=== PATIENT | female | born 1970 | race Caucasian/White ===

== ENCOUNTER 2016-05-20 08:30 | Emergency (ER) | payer SELFPAY ==
--- NOTE | 2016-05-20 09:12 | ER Document Report ---
HPI - HPI Patient complains to provider of: sinus pain and drainage Onset: Last week Onset/Duration: Gradual Quality of pain: Achy, Stabbing Pain Level: 3 Context: 45 yo female c/o bilateral max. sinus pain, pressure, stuffiness, for a week. No fever. Has post nasal drip. NO chest pain or sob. Does have cough Associated Symptoms: None Exacerbated by: Denies Relieved by: Denies Similar symptoms previously: Yes Recently seen / treated by doctor: No - ROS ROS below otherwise negative: Yes Systems Reviewed and Negative: Yes All other systems reviewed and negative - REPRODUCTIVE Reproductive: DENIES: : - DERM Skin Color: Normal Past Medical History - General Information source: Patient - Social History Smoking Status: Current Every Day Smoker Chew tobacco use (# tins/day): No Frequency of alcohol use: None Drug Abuse: None Lives with: Family Family History: Reviewed & Not Pertinent Patient has suicidal ideation: No Patient has homicidal ideation: No Pulmonary Medical History: Reports: Hx Bronchitis Renal/ Medical History: Denies: Hx Peritoneal Dialysis GI Medical History: Reports: Hx Gastroesophageal Reflux Disease, Hx Hiatal Hernia Past Surgical History: Reports: Hx Cholecystectomy, Hx Gynecologic Surgery - ectopic, D&C x2, Hx Hysterectomy, Hx Orthopedic Surgery - Left hand, left ankle x4, Hx Tubal Ligation - Immunizations Immunizations up to date: Yes Hx Diphtheria, Pertussis, Tetanus Vaccination: Yes Vertical Provider Document - CONSTITUTIONAL Agree With Documented VS: Yes Exam Limitations: No Limitations General Appearance: No Apparent Distress - INFECTION CONTROL TRAVEL OUTSIDE OF THE [place] IN LAST 30 DAYS: No - HEENT HEENT: Normocephalic, Pharyngeal Exudate, Pharyngeal Erythema. negative: Tympanic Membrane Red, Tympanic Membrane Bulging Notes: no facial swelling, boggy nares - NECK Neck: Supple. negative: Lymphadenopathy-Left, Lymphadenopathy-Right - RESPIRATORY Respiratory: Breath Sounds Normal, No Respiratory Distress O2 Sat by Pulse Oximetry: 95 - CARDIOVASCULAR Cardiovascular: Regular Rate, Regular Rhythm - GI/ABDOMEN Gastrointestinal: Abdomen Soft, Abdomen Non-Tender - MUSCULOSKELETAL/EXTREMETIES Musculoskeletal/Extremeties: MAEW, FROM - NEURO Level of Consciousness: Awake, Alert - DERM Integumentary: Warm, Dry Course - Vital Signs Vital signs: Temp Pulse Resp BP Pulse Ox 97.9 F 95 16 113/70 95 05/20/16 08:40 05/20/16 08:40 05/20/16 08:40 05/20/16 08:40 05/20/16 08:40 Discharge - Discharge Clinical Impression: sinusitis Condition: Good Disposition: HOME, SELF-CARE Instructions: Sinusitis ([facility]), Augmentin ([facility]) Additional Instructions: warm compress to sinus saline nasal spray four times per day to er if worse Stop smoking Please complete the patient satisfaction survey if you get one, and return it.. If you do not receive a survey, then you can go to the [facility] website, [email or web address] and place your comments about your very good care. Thank you very much. It was a pleasure being your medical provider today. Prescriptions: Amoxicillin/Potassium Clav [Augmentin 875-125 Tablet] 1 each PO BID #20 tablet Forms: Return to Work
[2016-05-20 09:29] VITALS: BP 125/94
== END 2016-05-20 09:29 | disposition home or self-care (01) ==
LOC: ER 08:30
DX: J32.9 Chronic sinusitis, unspecified (principal); J34.89 Other specified disorders of nose and nasal sinuses; R05 Cough; F17.200 Nicotine dependence, unspecified, uncomplicated; R09.82 Postnasal drip
CPT/HCPCS: 99283

== ENCOUNTER 2016-06-03 11:58 | Emergency (ER) | payer SELFPAY ==
--- NOTE | 2016-06-03 13:00 | ER Document Report ---
ED Medical Screen (RME) - General Stated Complaint: BACK PAIN Time seen by provider: 12:59 Mode of Arrival: Ambulatory Information source: Patient Notes: 45-year-old female complaining of bilateral pelvic pain and low back pain since she took Augmentin for a sinus infection several weeks ago. She has some itching in her vagina without discharge. She thinks she has a urinary tract infection. No fever. I have greeted and performed a rapid initial assessment of this patient. A comprehensive ED assessment, evaluation of the patient, analysis of test results , and completion of the medical decision making process will be contacted by additional ED providers. TRAVEL OUTSIDE OF THE [place] IN LAST 30 DAYS: No - Related Data Allergies/Adverse Reactions: ciprofloxacin HCl [From Cipro] Allergy (Mild, Verified 05/20/16 08:38) Sulfa (Sulfonamide Antibiotics) Allergy (Mild, Verified 05/20/16 08:38) escitalopram oxalate [From Lexapro] Allergy (Verified 05/20/16 08:38) nitrofurantoin [From Macrobid] Allergy (Verified 05/20/16 08:38) Facial swelling nitrofurantoin macrocrystalline [From Macrobid] Allergy (Verified 05/20/16 08:38 ) Facial swelling contrast dye Allergy (Mild, Uncoded 05/20/16 08:38) Past Medical History - Past Medical History Cardiac Medical History: Denies: Hx Coronary Artery Disease, Hx Heart Attack, Hx Hypertension Pulmonary Medical History: Reports: Hx Bronchitis Denies: Hx Asthma, Hx COPD, Hx Pneumonia Neurological Medical History: Denies: Hx Cerebrovascular Accident, Hx Seizures Renal/ Medical History: Denies: Hx Peritoneal Dialysis GI Medical History: Reports: Hx Gastroesophageal Reflux Disease, Hx Hiatal Hernia Musculoskeltal Medical History: Denies Hx Arthritis Past Surgical History: Reports: Hx Cholecystectomy, Hx Gynecologic Surgery - ectopic, D&C x2, Hx Hysterectomy, Hx Orthopedic Surgery - Left hand, left ankle x4, Hx Tubal Ligation - Immunizations Immunizations up to date: Yes Hx Diphtheria, Pertussis, Tetanus Vaccination: Yes Physical Exam - Vital signs Vitals: Temp Pulse Resp BP Pulse Ox 98.2 F 81 16 116/75 96 06/03/16 12:08 06/03/16 12:08 06/03/16 12:08 06/03/16 12:08 06/03/16 12:08 Course - Vital Signs Vital signs: Temp Pulse Resp BP Pulse Ox 98.2 F 81 16 116/75 96 06/03/16 12:08 06/03/16 12:08 06/03/16 12:08 06/03/16 12:08 06/03/16 12:08
[2016-06-03 13:42] LABS: ABSOLUTE EOSINOPHILS # (AUTO) 0.2 10^3/uL (0.0-0.6); ABSOLUTE LYMPHOCYTES (AUTO) 1.9 10^3/uL (0.5-4.7); ABSOLUTE MONOCYTES (AUTO) 0.5 10^3/uL (0.1-1.4); BASOPHILS % (AUTO) 0.7 % (0-2); HEMATOCRIT 44.7 % (36.0-47.0); HEMOGLOBIN 15.2 g/dL (12.0-15.5); HGB HCT DIFFERENCE 0.9; LYMPHOCYTES % (AUTO) 29.1 % (13-45); MEAN CORPUSCULAR HEMOGLOBIN 31.8 pg (27.0-33.4); MEAN CORPUSCULAR HGB CONC 33.9 g/dL (32.0-36.0); MEAN CORPUSCULAR VOLUME 94 fl (80-97); MONOCYTES % (AUTO) 8.1 % (3-13); RED BLOOD COUNT 4.77 10^6/uL (3.72-5.28); RED CELL DISTRIBUTION WIDTH 13.7 % (11.5-14.0); SEGMENTED NEUTROPHILS % (AUTO) 59.1 % (42-78); WHITE BLOOD COUNT 6.7 10^3/uL (4.0-10.5)
[2016-06-03 13:43] LABS: APPEARANCE,URINE SLIGHTLY-CLOUDY; BILIRUBIN,URINE NEGATIVE (NEGATIVE); GLUCOSE, URINE NEGATIVE (NEGATIVE); KETONES,URINE NEGATIVE (NEGATIVE); LEUKOCYTE ESTERASE,URINE NEGATIVE (NEGATIVE); NITRITE,URINE NEGATIVE (NEGATIVE); PROTEIN,URINE NEGATIVE (NEGATIVE); URINE SPECIFIC GRAVITY 1.003; UROBILINOGEN,URINE NEGATIVE mg/dL (<2.0)
[2016-06-03 13:50] LABS: ALANINE AMINOTRANSFERASE 40 U/L (9-52); ALBUMIN 4.2 g/dL (3.5-5.0); ALKALINE PHOSPHATASE 84 U/L (38-126); ANION GAP 7 (5-19); ASPARTATE AMINO TRANSFERASE 26 U/L (14-36); BILIRUBIN,TOTAL 0.3 mg/dL (0.2-1.3); BLOOD UREA NITROGEN 9 mg/dL (7-20); CALCIUM 9.4 mg/dL (8.4-10.2); CARBON DIOXIDE 28 mmol/L (22-30); CHLORIDE 107 mmol/L (98-107); GLUCOSE 73 mg/dL (75-110); POTASSIUM 4.5 mmol/L (3.6-5.0); SODIUM 141.5 mmol/L (137-145); TOTAL PROTEIN 6.6 g/dL (6.3-8.2)
--- NOTE | 2016-06-03 14:24 | ER Document Report ---
ED General - General Chief Complaint: Flank Pain Stated Complaint: BACK PAIN Mode of Arrival: Ambulatory Information source: Patient Notes: 45-year-old female presents with complaints of bilateral flank pain associated with burning on urination. Patient notes she was recently placed on Augmentin for TRAVEL OUTSIDE OF THE [place] IN LAST 30 DAYS: No - HPI Onset: Other - 3-4 days Onset/Duration: Persistent Quality of pain: Achy Severity: Mild Pain Level: 1 Associated symptoms: None Exacerbated by: Movement Relieved by: Denies Similar symptoms previously: Yes Recently seen / treated by doctor: Yes - Related Data Allergies/Adverse Reactions: ciprofloxacin HCl [From Cipro] Allergy (Mild, Verified 06/03/16 12:59) Sulfa (Sulfonamide Antibiotics) Allergy (Mild, Verified 06/03/16 12:59) escitalopram oxalate [From Lexapro] Allergy (Verified 06/03/16 12:59) nitrofurantoin [From Macrobid] Allergy (Verified 06/03/16 12:59) Facial swelling nitrofurantoin macrocrystalline [From Macrobid] Allergy (Verified 06/03/16 12:59 ) Facial swelling contrast dye Allergy (Mild, Uncoded 06/03/16 12:59) Past Medical History - General Information source: Patient - Social History Smoking Status: Current Every Day Smoker Cigarette use (# per day): No Chew tobacco use (# tins/day): No Smoking Education Provided: No Frequency of alcohol use: None Drug Abuse: None Family History: Reviewed & Not Pertinent Patient has suicidal ideation: No Patient has homicidal ideation: No - Past Medical History Cardiac Medical History: Denies: Hx Coronary Artery Disease, Hx Heart Attack, Hx Hypertension Pulmonary Medical History: Reports: Hx Bronchitis Denies: Hx Asthma, Hx COPD, Hx Pneumonia Neurological Medical History: Denies: Hx Cerebrovascular Accident, Hx Seizures Renal/ Medical History: Denies: Hx Peritoneal Dialysis GI Medical History: Reports: Hx Gastroesophageal Reflux Disease, Hx Hiatal Hernia Musculoskeltal Medical History: Denies Hx Arthritis Past Surgical History: Reports: Hx Cholecystectomy, Hx Gynecologic Surgery - ectopic, D&C x2, Hx Hysterectomy, Hx Orthopedic Surgery - Left hand, left ankle x4, Hx Tubal Ligation - Immunizations Immunizations up to date: Yes Hx Diphtheria, Pertussis, Tetanus Vaccination: Yes Review of Systems - Review of Systems Notes: REVIEW OF SYSTEMS: CONSTITUTIONAL : Denies fever, chills, or sweats. Denies recent illness. EENT: Denies eye, ear, throat, or mouth pain or symptoms. Denies nasal or sinus congestion or discharge. Denies throat, tongue, or mouth swelling or difficulty swallowing. CARDIOVASCULAR: Denies chest pain. Denies palpitations or racing or irregular heart beat. Denies ankle edema. RESPIRATORY: Denies cough, cold, or chest congestion. Denies shortness of breath, difficulty breathing, or wheezing. GASTROINTESTINAL: Denies abdominal pain or distention. Denies nausea, vomiting , or diarrhea. Denies blood in vomitus, stools, or per rectum. Denies black, tarry stools. Denies constipation. GENITOURINARY: Admits to burning on urination FEMALE GENITOURINARY: Denies vaginal bleeding, heavy or abnormal periods, irregular periods. Denies vaginal discharge or odor. MUSCULOSKELETAL: Admits to flank pain SKIN: Denies rash, lesions or sores. HEMATOLOGIC : Denies easy bruising or bleeding. LYMPHATIC: Denies swollen, enlarged glands. NEUROLOGICAL: Denies confusion or altered mental status. Denies passing out or loss of consciousness. Denies dizziness or lightheadedness. Denies headache. Denies weakness or paralysis or loss of use of either side. Denies problems with gait or speech. Denies sensory loss, numbness, or tingling. Denies seizures. PSYCHIATRIC: Denies anxiety or stress. Denies depression, suicidal ideation, or homicidal ideation. ALL OTHER SYSTEMS REVIEWED AND NEGATIVE. Dictation was performed using [employer] voice recognition software PHYSICAL EXAMINATION: GENERAL: Well-appearing, well-nourished and in no acute distress. HEAD: Atraumatic, normocephalic. EYES: Pupils equal round and reactive to light, extraocular movements intact, conjunctiva are normal. ENT: Nares patent, oropharynx clear without exudates. Moist mucous membranes. NECK: Normal range of motion, supple without lymphadenopathy LUNGS: Breath sounds clear to auscultation bilaterally and equal. No wheezes rales or rhonchi. HEART: Regular rate and rhythm without murmurs ABDOMEN: Soft, nontender, nondistended abdomen. No guarding, no rebound. No masses appreciated. Right CVA tenderness Female : deferred Musculoskeletal: Normal range of motion, no pitting or edema. No cyanosis. NEUROLOGICAL: Cranial nerves grossly intact. Normal speech, normal gait. Normal sensory, motor exams PSYCH: Normal mood, normal affect. SKIN: Warm, Dry, normal turgor, no rashes or lesions noted. Physical Exam - Vital signs Vitals: Temp Pulse Resp BP Pulse Ox 98.2 F 81 16 116/75 96 06/03/16 12:08 06/03/16 12:08 06/03/16 12:08 06/03/16 12:08 06/03/16 12:08 Course - Re-evaluation Re-evalutation: 06/03/16 15:21 Urinalysis notes no sign of infection, CT noted no acute abnormality. Patient will betreated for candidiasis since she was recently on augmentin After performing a Medical Screening Examination, I estimate there is LOW risk for ACUTE CORONARY SYNDROME, RESPIRATORY FAILURE, SEPSIS OR MENINGITIS, thus I consider the discharge disposition reasonable. The patient and I have discussed the diagnosis and risks, and we agree with discharging home with close follow- up. We also discussed returning to the Emergency Department immediately if new or worsening symptoms occur. We have discussed the symptoms which are most concerning (e.g., changing or worsening pain, trouble swallowing or breathing, neck stiffness, fever) that necessitate immediate return. - Vital Signs Vital signs: Temp Pulse Resp BP Pulse Ox 98.2 F 81 16 116/75 96 06/03/16 12:08 06/03/16 12:08 06/03/16 12:08 06/03/16 12:08 06/03/16 12:08 - Laboratory Result Diagrams: 06/03/16 13:16 06/03/16 13:16 Laboratory results interpreted by me: 06/03/16 06/03/16 13:16 13:16 Glucose 73 L Urine Blood SMALL H - Diagnostic Test Radiology reviewed: Image reviewed, Reports reviewed Discharge - Discharge Clinical Impression: Flank pain, Candidiasis of vagina Condition: Stable Disposition: HOME, SELF-CARE Instructions: Flank Pain ([facility]) Additional Instructions: Follow up with your physician tomorrow for further care or return to the ED IMMEDIATELY if symptoms worsen or new concerns occur
[2016-06-03 15:07] LABS: CHLAM PCR NOT DETECTED (NOT DETECT)
[2016-06-03] MEDS ORDERED: FLUCONAZOLE 100 MG TABLET PO ONE (15:15)
[2016-06-03 15:39] VITALS: BP 120/81
== END 2016-06-03 15:20 | disposition home or self-care (01) ==
LOC: ER 11:58
DX: B37.3 Candidiasis of vulva and vagina (principal); R30.0 Dysuria; R10.9 Unspecified abdominal pain; F17.200 Nicotine dependence, unspecified, uncomplicated; Z88.1 Allergy status to other antibiotic agents; Z88.2 Allergy status to sulfonamides; Z88.8 Allergy status to other drugs, medicaments and biological substances; Z91.041 Radiographic dye allergy status; Z90.49 Acquired absence of other specified parts of digestive tract; Z90.710 Acquired absence of both cervix and uterus
CPT/HCPCS: 36415; 76380; 80053; 81001; 81025; 85025; 87086; 87491; 87591; 99284

== ENCOUNTER 2016-06-25 14:36 | Emergency (ER) | payer OTHER ==
--- NOTE | 2016-06-25 15:39 | ER Document Report ---
ED Medical Screen (RME) - General Chief Complaint: Headache Stated Complaint: HEAD PAIN Time seen by provider: 15:38 Mode of Arrival: Ambulatory Information source: Patient Notes: 46-year-old female complaining of sinus congestion and dizziness when she stands up she thinks she has a sinus infection back. Vital signs are stable in triage. She was treated with antibiotics several weeks ago for sinus infection and got better. I have greeted and performed a rapid initial assessment of this patient. A comprehensive ED assessment, evaluation of the patient, analysis of test results , and completion of the medical decision making process will be conducted by additional ED providers. TRAVEL OUTSIDE OF THE [place] IN LAST 30 DAYS: No - Related Data Allergies/Adverse Reactions: ciprofloxacin HCl [From Cipro] Allergy (Mild, Verified 06/03/16 12:59) Sulfa (Sulfonamide Antibiotics) Allergy (Mild, Verified 06/03/16 12:59) escitalopram oxalate [From Lexapro] Allergy (Verified 06/03/16 12:59) nitrofurantoin [From Macrobid] Allergy (Verified 06/03/16 12:59) Facial swelling nitrofurantoin macrocrystalline [From Macrobid] Allergy (Verified 06/03/16 12:59 ) Facial swelling contrast dye Allergy (Mild, Uncoded 06/03/16 12:59) Past Medical History - Past Medical History Cardiac Medical History: Denies: Hx Coronary Artery Disease, Hx Heart Attack, Hx Hypertension Pulmonary Medical History: Reports: Hx Bronchitis Denies: Hx Asthma, Hx COPD, Hx Pneumonia Neurological Medical History: Denies: Hx Cerebrovascular Accident, Hx Seizures Renal/ Medical History: Denies: Hx Peritoneal Dialysis GI Medical History: Reports: Hx Gastroesophageal Reflux Disease, Hx Hiatal Hernia Musculoskeltal Medical History: Denies Hx Arthritis Past Surgical History: Reports: Hx Cholecystectomy, Hx Gynecologic Surgery - ectopic, D&C x2, Hx Hysterectomy, Hx Orthopedic Surgery - Left hand, left ankle x4, Hx Tubal Ligation - Immunizations Immunizations up to date: Yes Hx Diphtheria, Pertussis, Tetanus Vaccination: Yes Physical Exam - Vital signs Vitals: Temp Pulse Resp BP Pulse Ox 97.7 F 81 16 128/85 H 96 06/25/16 14:39 06/25/16 14:39 06/25/16 14:39 06/25/16 14:39 06/25/16 14:39 Course - Vital Signs Vital signs: Temp Pulse Resp BP Pulse Ox 97.7 F 81 16 128/85 H 96 06/25/16 14:39 06/25/16 14:39 06/25/16 14:39 06/25/16 14:39 06/25/16 14:39
--- NOTE | 2016-06-25 16:55 | ER Document Report ---
ED General - General Chief Complaint: Headache Stated Complaint: HEAD PAIN Time seen by provider: 16:50 Mode of Arrival: Ambulatory Information source: Patient Notes: 46-year-old female complains about 3 day history of anterior facial pain and pressure subjective fever and nonproductive cough several what she's had in the past with sinus infections. Patient reports completing course of Augmentin 3 weeks ago with improvement and then became worse again. She also reports she's been on Claritin for the past 3 days and reports dry chapped lips with that. She denies earache, sore throat, chest pain, abdominal pain, back pain, nausea, or vomiting. He reports he has been drinking fluids without problems was concerned she might be dehydrated anyway. Physical Exam: General: Alert, appears well. HEENT: Normocephalic. Atraumatic. PERRLA. Extraocular movements intact. Tympanic membranes and canals clear Oropharynx clear. Tender to palpation over frontal and maxillary sinuses bilaterally Neck: Supple. Non-tender. Respiratory: No respiratory distress. Clear and equal breath sounds bilaterally. Cardiovascular: Regular rate and rhythm. Abdominal: Normal Inspection. Soft, non-tender. No distension. Normal Bowel Sounds. Back: Non-tender. No deformity or step off. Extremities: Moves all four extremities. Upper extremities: Normal inspection. Non-tender. Normal color. Normal ROM. Normal temperature. Lower extremities: Normal inspection. Non-tender. No edema. Normal color. Normal ROM. Normal temperature. Neurological: Speech clear mentation normal moves all extremities well Psychological: Normal affect. Normal Mood. Skin: Warm. Dry. Normal color. TRAVEL OUTSIDE OF THE [place] IN LAST 30 DAYS: No - Related Data Allergies/Adverse Reactions: ciprofloxacin HCl [From Cipro] Allergy (Mild, Verified 06/03/16 12:59) Sulfa (Sulfonamide Antibiotics) Allergy (Mild, Verified 06/03/16 12:59) escitalopram oxalate [From Lexapro] Allergy (Verified 06/03/16 12:59) nitrofurantoin [From Macrobid] Allergy (Verified 06/03/16 12:59) Facial swelling nitrofurantoin macrocrystalline [From Macrobid] Allergy (Verified 06/03/16 12:59 ) Facial swelling contrast dye Allergy (Mild, Uncoded 06/03/16 12:59) Past Medical History - General Information source: Patient - Social History Smoking Status: Current Every Day Smoker Family History: CAD - Father of MD, Malignancy - Brother with colon cancer Patient has suicidal ideation: No Patient has homicidal ideation: No - Past Medical History Cardiac Medical History: Denies: Hx Coronary Artery Disease, Hx Heart Attack, Hx Hypertension Pulmonary Medical History: Reports: Hx Bronchitis Denies: Hx Asthma, Hx COPD, Hx Pneumonia Neurological Medical History: Denies: Hx Cerebrovascular Accident, Hx Seizures Renal/ Medical History: Denies: Hx Peritoneal Dialysis GI Medical History: Reports: Hx Gastroesophageal Reflux Disease, Hx Hiatal Hernia Musculoskeltal Medical History: Denies Hx Arthritis Past Surgical History: Reports: Hx Cholecystectomy, Hx Gynecologic Surgery - ectopic, D&C x2, Hx Hysterectomy, Hx Orthopedic Surgery - Left hand, left ankle x4, Hx Tubal Ligation - Immunizations Immunizations up to date: Yes Hx Diphtheria, Pertussis, Tetanus Vaccination: Yes Review of Systems - Review of Systems Constitutional: See HPI EENT: See HPI Cardiovascular: denies: Chest pain Respiratory: See HPI Gastrointestinal: denies: Abdominal pain, Nausea, Vomiting Genitourinary: denies: Burning, Dysuria Musculoskeletal: denies: Back pain Skin: denies: Rash Hematologic/Lymphatic: denies: Swollen glands Neurological/Psychological: denies: Weakness, Numbness Physical Exam - Vital signs Vitals: Temp Pulse Resp BP Pulse Ox 97.7 F 81 16 128/85 H 96 06/25/16 14:39 06/25/16 14:39 06/25/16 14:39 06/25/16 14:39 06/25/16 14:39 Course - Re-evaluation Re-evalutation: 06/25/16 16:52 Patient expresses concern about dehydration but clinically she is not dehydrated the point that she requires IV fluids. We'll treated with Zithromax Z-DANETTE for recurrent sinus infection - Vital Signs Vital signs: Temp Pulse Resp BP Pulse Ox 97.7 F 81 16 128/85 H 96 06/25/16 14:39 06/25/16 14:39 06/25/16 14:39 06/25/16 14:39 06/25/16 14:39 Discharge - Discharge Clinical Impression: Sinusitis Qualifiers: Sinusitis location: unspecified location Chronicity: acute Recurrence: recurrent Qualified Code(s): J01.91 - Acute recurrent sinusitis, unspecified Condition: Stable Disposition: HOME, SELF-CARE Additional Instructions: Sinusitis You have sinusitis, an infection of the sinus cavities of the face. The sinuses are air-filled chambers which open into the inside of the nose. Bacteria and pus fill a sinus, causing pain, drainage, and fever. Sinusitis is treated with antibiotics. Often, expectorants (to thin the sinus mucous) or decongestants (to reduce swelling) are prescribed as well. Healing requires seven to 10 days. Avoid chemical fumes, pollens, dusts, and smoke (especially cigarette smoke ). Keep the air humidified in your bedroom and work area and take plenty of liquids by mouth. This condition can be serious if the infection spreads. If your symptoms worsen, or if you develop severe headache, high fever, stiff neck, or a rash, you must call the doctor or return for re-evaluation. Follow-up with your physician at [facility] as scheduled this week Prescriptions: Azithromycin [Zithromax 250 mg Tablet] 250 mg PO ASDIR PRN #6 tablet PRN Reason:
[2016-06-25 17:17] VITALS: BP 127/86
== END 2016-06-25 17:14 | disposition home or self-care (01) ==
LOC: ER 14:36
DX: J01.91 Acute recurrent sinusitis, unspecified (principal); R51 Headache; R50.9 Fever, unspecified; F17.210 Nicotine dependence, cigarettes, uncomplicated
CPT/HCPCS: 99283

== ENCOUNTER 2017-01-21 10:57 | Emergency (ER) | payer SELFPAY ==
--- NOTE | 2017-01-21 12:01 | ER Document Report ---
HPI - HPI Pain Level: 5 Notes: Patient is a 46-year-old female who presents the ED complaining of nasal congestion/discharge, sinus pressure, hoarseness, dry nonproductive cough 1 week. Patient states that she was evaluated by her PCM initially and was given Decadron p.o. and then went back a few days later and received a Decadron injection. Patient states that steroids have not been helping. She continues to have symptoms. She denies any trouble eating or drinking. She is still urinating and having normal bowel movements. She has been using some over-the- counter meds with minimal relief. Patient is a smoker. She denies any other IV drug use. Denies any other immunocompromised condition. Denies any headache , fever, neck pain, sore throat, chest pain, palpitations, syncope, shortness of breath, wheeze, dyspnea, abdominal pain, nausea/vomiting/diarrhea, urinary retention, dysuria, hematuria, or rash. - ROS Notes: REVIEW OF SYSTEMS: CONSTITUTIONAL : Denies fever, chills, or sweats. Denies recent illness. EENT: see hpi CARDIOVASCULAR: Denies chest pain. Denies palpitations or racing or irregular heart beat. Denies ankle edema. RESPIRATORY: see hpi GASTROINTESTINAL: Denies abdominal pain or distention. Denies nausea, vomiting , or diarrhea. Denies blood in vomitus, stools, or per rectum. Denies black, tarry stools. Denies constipation. GENITOURINARY: Denies difficulty urinating, painful urination, burning, frequency, blood in urine, or discharge. MUSCULOSKELETAL: Denies back or neck pain or stiffness. Denies joint pain or swelling. SKIN: Denies rash, lesions or sores. NEUROLOGICAL: Denies confusion or altered mental status. Denies passing out or loss of consciousness. Denies dizziness or lightheadedness. Denies headache. Denies weakness or paralysis or loss of use of either side. Denies problems with gait or speech. Denies sensory loss, numbness, or tingling. ALL OTHER SYSTEMS REVIEWED AND NEGATIVE. Dictation was performed using [employer] voice recognition software - REPRODUCTIVE Reproductive: DENIES: : - DERM Skin Color: Normal Past Medical History - Social History Smoking Status: Current Every Day Smoker Chew tobacco use (# tins/day): No Frequency of alcohol use: None Drug Abuse: None Family History: CAD - Father of [place], Malignancy - Brother with colon cancer Patient has suicidal ideation: No Patient has homicidal ideation: No - Past Medical History Cardiac Medical History: Denies: Hx Coronary Artery Disease, Hx Heart Attack, Hx Hypertension Pulmonary Medical History: Reports: Hx Bronchitis Denies: Hx Asthma, Hx COPD, Hx Pneumonia Neurological Medical History: Denies: Hx Cerebrovascular Accident, Hx Seizures Renal/ Medical History: Denies: Hx Peritoneal Dialysis GI Medical History: Reports: Hx Gastroesophageal Reflux Disease, Hx Hiatal Hernia Musculoskeltal Medical History: Denies Hx Arthritis Past Surgical History: Reports: Hx Cholecystectomy, Hx Gynecologic Surgery - ectopic, D&C x2, Hx Hysterectomy, Hx Orthopedic Surgery - Left hand, left ankle x4, Hx Tubal Ligation - Immunizations Immunizations up to date: Yes Hx Diphtheria, Pertussis, Tetanus Vaccination: Yes Vertical Provider Document - CONSTITUTIONAL Agree With Documented VS: Yes Notes: PHYSICAL EXAMINATION: GENERAL: Well-appearing, well-nourished and in no acute distress. A&Ox4 HEAD: Atraumatic, normocephalic. EYES: Pupils equal round and reactive to light, extraocular movements intact, sclera anicteric, conjunctiva are normal. ENT: EAC clear b/l. TM's intact b/l without erythema, fluid, or perforation. Nares patent and with clear/yellow discharge. oropharynx clear without exudates. No tonsilar hypertrophy or erythema. Moist mucous membranes. minimal sinus tenderness to max. b/l. NECK: Normal range of motion, supple without lymphadenopathy LUNGS: Breath sounds clear to auscultation bilaterally and equal. No wheezes rales or rhonchi. HEART: Regular rate and rhythm without murmurs, rubs, gallops. Musculoskeletal: FROM to passive/active. Strength 5+/5. Extremities: No cyanosis, clubbing, or edema b/l. Peripheral pulses 2+. Capillary refill less than 3 seconds. NEUROLOGICAL: Cranial nerves grossly intact. Normal speech, normal gait. Normal sensory, motor exams PSYCH: Normal mood, normal affect. SKIN: Warm, Dry, normal turgor, no rashes or lesions noted. - INFECTION CONTROL TRAVEL OUTSIDE OF THE [place] IN LAST 30 DAYS: No - RESPIRATORY O2 Sat by Pulse Oximetry: 98 Course - Re-evaluation Re-evalutation: 01/21/17 11:58 Patient is an afebrile, well-hydrated, 46-year-old female who presents the ED with acute URI/sinusitis, I suspect that this is viral currently. Vitals are stable. PE is otherwise unremarkable. No imaging warranted based on H&P today. I did review with the patient that I will send her home with a pocket prescription that she may start in about 2 days with ongoing/worsening symptoms. Reiterated that I believe that it is a viral illness and conservative measures are warranted. Recheck with your PCM in 3-5 days. Return to the ED with any worsening/concerning symptoms otherwise as reviewed discharge. Patient is in agreement. Low suspicion for any emergent condition at this time. - Vital Signs Vital signs: Temp Pulse Resp BP Pulse Ox 97.9 F 92 20 122/72 98 01/21/17 11:14 01/21/17 11:14 01/21/17 11:14 01/21/17 11:14 01/21/17 11:14 Discharge - Discharge Clinical Impression: URI (upper respiratory infection) Qualifiers: URI type: unspecified URI Qualified Code(s): J06.9 - Acute upper respiratory infection, unspecified Acute sinusitis Qualifiers: Sinusitis location: unspecified location Recurrence: not specified as recurrent Qualified Code(s): J01.90 - Acute sinusitis, unspecified Condition: Stable Disposition: HOME, SELF-CARE Instructions: Upper Respiratory Illness ([facility]), Viral Syndrome ([facility]) Additional Instructions: Maintain adequate fluid intake Take meds as directed tylenol/ibuprofen as needed over the counter cold medication as needed for symptoms Humidified air may help F/u: with your PCM in 2-3 days for a recheck Return to the ED with any fever, worsening pain, chest pain, palpitations, syncope, worsening PHILLIPS, neck pain/stiffness, shortness of breath, wheezing, drooling, trouble swallowing/breathing, abdominal pain, n/v/d, rash, or worsening/concerning symptoms otherwise. Prescriptions: Amox Tr/Potassium Clavulanate [Augmentin 875-125 Tablet] 1 tab PO BID 10 Days # 20 tablet Forms: Smoking Cessation Education Referrals: [facility] [Provider Group] - Follow up as needed [facility] [Provider Group] - Follow up as needed
[2017-01-21 12:36] VITALS: BP 113/74
== END 2017-01-21 12:33 | disposition home or self-care (01) ==
LOC: ER 10:57
DX: J01.90 Acute sinusitis, unspecified (principal); R05 Cough; R49.0 Dysphonia; F17.200 Nicotine dependence, unspecified, uncomplicated
CPT/HCPCS: 99282

== ENCOUNTER 2017-05-27 09:27 | Emergency (ER) | payer SELFPAY ==
[2017-05-27] MEDS ORDERED: IPRATROPIUM/ALBUTEROL 0.5-2.5 MG/3 ML AMPUL NEB ONE (10:10)
--- NOTE | 2017-05-27 10:55 | ER Document Report ---
ED General - General Chief Complaint: Cough Stated Complaint: HEADACHE,COUGH Time Seen by Provider: 05/27/17 10:10 Mode of Arrival: Ambulatory Information source: Patient TRAVEL OUTSIDE OF THE [place] IN LAST 30 DAYS: No - HPI Notes: 46-year-old female presents today with complaints of sinus pain, nasal congestion, headache x 4 days with 2 weeks of green productive cough. reports hx of seasonal allergies, takes otc claritin, nasonex for these symptoms. Pain 5/10, achy and constant. Denies any rashes. Tried otc cold medications without relief. reports fevers and chills. Eating and drinking ok. Worse when laying flat, better when upright. Vaccinations are UTD. Denies any cp, sob, n/v/d, abd pain, dysuria and hemturia. + smoker [id number] years. denies mylagias. no flu shot this year. . - Related Data Allergies/Adverse Reactions: ciprofloxacin HCl [From Cipro] Allergy (Mild, Verified 05/27/17 09:28) Sulfa (Sulfonamide Antibiotics) Allergy (Mild, Verified 05/27/17 09:28) escitalopram oxalate [From Lexapro] Allergy (Verified 05/27/17 09:28) nitrofurantoin [From Macrobid] Allergy (Verified 05/27/17 09:28) Facial swelling nitrofurantoin macrocrystalline [From Macrobid] Allergy (Verified 05/27/17 09:28 ) Facial swelling contrast dye Allergy (Mild, Uncoded 05/27/17 09:28) Past Medical History - General Information source: Patient - Social History Smoking Status: Current Every Day Smoker Chew tobacco use (# tins/day): No Frequency of alcohol use: None Drug Abuse: None Family History: CAD - Father of [place], Malignancy - Brother with colon cancer Patient has suicidal ideation: No Patient has homicidal ideation: No - Past Medical History Cardiac Medical History: Denies: Hx Coronary Artery Disease, Hx Heart Attack, Hx Hypertension Pulmonary Medical History: Reports: Hx Bronchitis Denies: Hx Asthma, Hx COPD, Hx Pneumonia Neurological Medical History: Denies: Hx Cerebrovascular Accident, Hx Seizures Renal/ Medical History: Denies: Hx Peritoneal Dialysis GI Medical History: Reports: Hx Gastroesophageal Reflux Disease, Hx Hiatal Hernia Musculoskeltal Medical History: Denies Hx Arthritis Past Surgical History: Reports: Hx Cholecystectomy, Hx Gynecologic Surgery - ectopic, D&C x2, Hx Hysterectomy, Hx Orthopedic Surgery - Left hand, left ankle x4, Hx Tubal Ligation - Immunizations Immunizations up to date: Yes Hx Diphtheria, Pertussis, Tetanus Vaccination: Yes Review of Systems - Review of Systems Constitutional: No symptoms reported EENT: See HPI Cardiovascular: No symptoms reported Respiratory: See HPI Gastrointestinal: No symptoms reported Genitourinary: No symptoms reported Female Genitourinary: No symptoms reported Musculoskeletal: No symptoms reported Skin: No symptoms reported Hematologic/Lymphatic: No symptoms reported Neurological/Psychological: No symptoms reported Physical Exam - Vital signs Vitals: Temp Pulse Resp BP Pulse Ox 98.5 F 96 16 114/87 H 96 05/27/17 09:34 05/27/17 09:34 05/27/17 09:34 05/27/17 09:34 05/27/17 09:34 Interpretation: Normal - Notes Notes: PHYSICAL EXAMINATION: GENERAL: Well-appearing, well-nourished and in no acute distress. HEAD: Atraumatic, normocephalic. EYES: Pupils equal round and reactive to light, extraocular movements intact, conjunctiva are normal. left maxillary tenderness on palpation. noted nasal congestion and rhinorrhea. TM with serous effusion, no erythema. Throat with exudates. No lymphadenopathy noted. ENT: Nares patent, oropharynx clear without exudates. Moist mucous membranes. NECK: Normal range of motion, supple without lymphadenopathy LUNGS:noted wheezing in all lobes. no rhonchi or rales noted. No accessory muscle usage. after breathing treatment, Breath sounds clear to auscultation bilaterally and equal. HEART: Regular rate and rhythm without murmurs ABDOMEN: Soft, nontender, nondistended abdomen. No guarding, no rebound. No masses appreciated. Female : deferred Musculoskeletal: Normal range of motion, no pitting or edema. No cyanosis. NEUROLOGICAL: Cranial nerves grossly intact. Normal speech, normal gait. Normal sensory, motor exams PSYCH: Normal mood, normal affect. SKIN: Warm, Dry, normal turgor, no rashes or lesions noted. Course - Re-evaluation Re-evalutation: Rechecked the patient who is resting comfortably. On re-exam, patient is symptomatically improved. Discussed the results of radiology as well as the diagnosis at great length. Chest x-ray negative for any acute findings per radiology. Discussed the need to return to the ER for any new or worsening sx. Patient understands to take the Rx as directed. All questions answered. Patient comfortable with the decision to go home. 05/27/17 11:25 - Vital Signs Vital signs: Temp Pulse Resp BP Pulse Ox 98.5 F 96 16 114/87 H 96 05/27/17 09:34 05/27/17 09:34 05/27/17 09:34 05/27/17 09:34 05/27/17 09:34 Discharge - Discharge Clinical Impression: Acute bacterial sinusitis, Cough Clinical Impression: (Ruled Out): Acute bronchitis, URI (upper respiratory infection) Condition: Good Disposition: HOME, SELF-CARE Additional Instructions: Sinusitis You have sinusitis, an infection of the sinus cavities of the face. The sinuses are air-filled chambers which open into the inside of the nose. Bacteria and pus fill a sinus, causing pain, drainage, and fever. Sinusitis is treated with antibiotics. Often, expectorants (to thin the sinus mucous) or decongestants (to reduce swelling) are prescribed as well. Healing requires seven to 10 days. Avoid chemical fumes, pollens, dusts, and smoke (especially cigarette smoke ). Keep the air humidified in your bedroom and work area and take plenty of liquids by mouth. This condition can be serious if the infection spreads. If your symptoms worsen, or if you develop severe headache, high fever, stiff neck, or a rash, you must call the doctor or return for re-evaluation. Cough Suppressant/Expectorant Medication You are to use a cough medication as needed for relief of symptoms. This medicine is a combination of an expectorant (to make the mucous thinner and more easily "coughed up") and a cough suppressant (to reduce the frequency of coughing). The cough-suppressant medicine is related to narcotics. You may experience mild nausea and sleepiness. Some patients who are very sensitive to narcotics may have stomach pain from this medicine. Taking the medicine with food reduces these side effects. Do not drive or work with machinery until you know how this medicine affects you. The expectorant should have no side effects. Iodine-containing expectorants (such as organidin) should not be taken by persons with active thyroid disease unless approved by your doctor. Call the doctor if you develop shortness of breath, hives, rash, itching, lightheadedness, or severe nausea and vomiting. Forms: Return to School, Return to Work Referrals: NASIM CORONA MD [COMMUNITY BASED STAFF] - Follow up in 3-5 days
--- NOTE | 2017-05-27 11:23 | RADIOLOGY REPORT (SQ) ---
EXAM DESCRIPTION: CHEST PA/LAT COMPLETED DATE/TIME: 05/27/2017 11:09 am REASON FOR STUDY: cough x 2 weeks with fever COMPARISON: Two-view chest 01/02/2016, 05/19/2015 EXAM PARAMETERS: NUMBER OF VIEWS: two views TECHNIQUE: Digital Frontal and Lateral radiographic views of the chest acquired. RADIATION DOSE: NA LIMITATIONS: none FINDINGS: LUNGS AND PLEURA: No opacities, masses or pneumothorax. No pleural effusion. MEDIASTINUM AND HILAR STRUCTURES: No masses or contour abnormalities. HEART AND VASCULAR STRUCTURES: Heart normal size. No evidence for failure. BONES: No acute findings. HARDWARE: Clips right upper quadrant post cholecystectomy OTHER: No other significant finding. IMPRESSION: NO SIGNIFICANT RADIOGRAPHIC FINDING IN THE CHEST. TECHNICAL DOCUMENTATION: JOB ID: [id number] [employer]- All Rights Reserved
[2017-05-27 11:37] VITALS: BP 120/81
== END 2017-05-27 11:35 | disposition home or self-care (01) ==
LOC: ER 09:27
DX: J01.90 Acute sinusitis, unspecified (principal); B96.89 Other specified bacterial agents as the cause of diseases classified elsewhere; J30.2 Other seasonal allergic rhinitis; Z79.899 Other long term (current) drug therapy; R05 Cough; R06.2 Wheezing; R51 Headache; R09.81 Nasal congestion; F17.200 Nicotine dependence, unspecified, uncomplicated; Z88.1 Allergy status to other antibiotic agents; Z88.2 Allergy status to sulfonamides; Z88.8 Allergy status to other drugs, medicaments and biological substances; Z91.041 Radiographic dye allergy status
CPT/HCPCS: 94640; 99283; 71046; J7620

== ENCOUNTER 2017-08-11 16:40 | Emergency (ER) | payer SELFPAY ==
--- NOTE | 2017-08-11 17:57 | ER Document Report ---
ED General - General Chief Complaint: Skin Problem Stated Complaint: POSSIBLE RASH Time Seen by Provider: 08/11/17 17:31 Mode of Arrival: Ambulatory Information source: Patient TRAVEL OUTSIDE OF THE [place] IN LAST 30 DAYS: No - HPI Notes: 47-year-old female presents today with a rash on her chest and back that has been there for the last 3 weeks. Reports rash is itchy. Has not tried any over -the-counter medications. Denies any recent travel, new foods or medications. Did borrow her sugar from her friend a few weeks ago, unsure if this is the reason why she has a rash. Worse with time, nothing makes better. Denies itching worse at night. Not tried any [id number] medications. Denies fevers, chills, chest pain,palpitations, shortness of breath, dyspnea, nausea , vomiting, diarrhea, abdominal pain, hematuria,blurred vision, double vision, loss of vision, speech changes, LH, dizziness, syncope, headaches, wheezing, ST , URI, neck pain, weakness, bowel or bladder dysfunction, saddle anesthesia, numbness or tingling in bilateral upper or lower extremities equally, muscle paralysis, weakness in bilateral upper or lower extremities equally . Denies IV drug use. - Related Data Allergies/Adverse Reactions: ciprofloxacin HCl [From Cipro] Allergy (Mild, Verified 05/27/17 09:28) Sulfa (Sulfonamide Antibiotics) Allergy (Mild, Verified 05/27/17 09:28) escitalopram oxalate [From Lexapro] Allergy (Verified 05/27/17 09:28) nitrofurantoin [From Macrobid] Allergy (Verified 05/27/17 09:28) Facial swelling nitrofurantoin macrocrystalline [From Macrobid] Allergy (Verified 05/27/17 09:28 ) Facial swelling contrast dye Allergy (Mild, Uncoded 05/27/17 09:28) Past Medical History - General Information source: Patient - Social History Smoking Status: Current Every Day Smoker Frequency of alcohol use: None Drug Abuse: None Family History: CAD - Father of [place], Malignancy - Brother with colon cancer Patient has suicidal ideation: No Patient has homicidal ideation: No - Past Medical History Cardiac Medical History: Denies: Hx Coronary Artery Disease, Hx Heart Attack, Hx Hypertension Pulmonary Medical History: Reports: Hx Bronchitis Denies: Hx Asthma, Hx COPD, Hx Pneumonia Neurological Medical History: Denies: Hx Cerebrovascular Accident, Hx Seizures Renal/ Medical History: Denies: Hx Peritoneal Dialysis GI Medical History: Reports: Hx Gastroesophageal Reflux Disease, Hx Hiatal Hernia Musculoskeltal Medical History: Denies Hx Arthritis Past Surgical History: Reports: Hx Cholecystectomy, Hx Gynecologic Surgery - ectopic, D&C x2, Hx Hysterectomy, Hx Orthopedic Surgery - Left hand, left ankle x4, Hx Tubal Ligation - Immunizations Immunizations up to date: Yes Hx Diphtheria, Pertussis, Tetanus Vaccination: Yes Review of Systems - Review of Systems Constitutional: No symptoms reported EENT: No symptoms reported Cardiovascular: No symptoms reported Respiratory: No symptoms reported Gastrointestinal: No symptoms reported Genitourinary: No symptoms reported Female Genitourinary: No symptoms reported Musculoskeletal: No symptoms reported Skin: See HPI Hematologic/Lymphatic: No symptoms reported Neurological/Psychological: No symptoms reported Physical Exam - Vital signs Vitals: Temp Pulse Resp BP Pulse Ox 98.2 F 92 16 121/78 97 08/11/17 17:06 08/11/17 17:06 08/11/17 17:06 08/11/17 17:06 08/11/17 17:06 - Notes Notes: PHYSICAL EXAMINATION: GENERAL: Well-appearing, well-nourished and in no acute distress. HEAD: Atraumatic, normocephalic. EYES: Pupils equal round and reactive to light, extraocular movements intact, conjunctiva are normal. ENT: Nares patent, oropharynx clear without exudates. Moist mucous membranes. NECK: Normal range of motion, supple without lymphadenopathy LUNGS: Breath sounds clear to auscultation bilaterally and equal. No wheezes rales or rhonchi. HEART: Regular rate and rhythm without murmurs ABDOMEN: Soft, nontender, nondistended abdomen. No guarding, no rebound. No masses appreciated. Female : deferred Musculoskeletal: Normal range of motion, no pitting or edema. No cyanosis. NEUROLOGICAL: Cranial nerves grossly intact. Normal speech, normal gait. Normal sensory, motor exams PSYCH: Normal mood, normal affect. SKIN: Warm, Dry, normal turgor, no rashes or lesions noted. Erythemic maculopapular clustered rash on anterior chest and back. No surrounding satellite lesions, linear pattern or burrowing noted. No noted induration, warmth to touch. Course - Re-evaluation Re-evalutation: 08/11/17 18:00 At this time will discharge with return precautions and follow-up recommendations. Verbal discharge instructions given a the bedside and opportunity for questions given. Medication warnings reviewed. Patient is in agreement with this plan and has verbalized understanding of return precautions and the need for primary care follow-up in the next 24-72 hours. - Vital Signs Vital signs: Temp Pulse Resp BP Pulse Ox 98.2 F 92 16 121/78 97 08/11/17 17:06 08/11/17 17:06 08/11/17 17:06 08/11/17 17:06 08/11/17 17:06 Discharge - Discharge Clinical Impression: Contact dermatitis Qualifiers: Contact dermatitis type: irritant Contact dermatitis trigger: other trigger Qualified Code(s): L24.89 - Irritant contact dermatitis due to other agents; L24.8 - Irritant contact dermatitis due to other agents Condition: Good Disposition: HOME, SELF-CARE Instructions: Contact Dermatitis ([facility]) Additional Instructions: Return immediately for any new or worsening symptoms. Follow up with primary care provider, call tomorrow to make followup appointment. Prescriptions: Prednisone 20 mg PO BID #10 tablet Triamcinolone Acetonide 15 gm TP BID 10 Days #453 oint...g. Referrals: JENNIFER SOLIZ MD [ACTIVE STAFF] - Follow up as needed
[2017-08-11 18:08] VITALS: BP 116/72
== END 2017-08-11 18:08 | disposition home or self-care (01) ==
LOC: ER 16:40
DX: L24.9 Irritant contact dermatitis, unspecified cause (principal); F17.200 Nicotine dependence, unspecified, uncomplicated; Z88.1 Allergy status to other antibiotic agents; Z88.2 Allergy status to sulfonamides; Z88.8 Allergy status to other drugs, medicaments and biological substances; Z91.041 Radiographic dye allergy status
CPT/HCPCS: 99283

== ENCOUNTER 2017-09-05 16:54 | Emergency (ER) | payer SELFPAY ==
[2017-09-05] MEDS ORDERED: LORATADINE 10 MG TABLET PO ONE (19:28)
[2017-09-05] MEDS ORDERED: PSEUDOEPHEDRINE HCL 30 MG TABLET PO ONE (19:28)
[2017-09-05] MEDS ORDERED: PREDNISONE 20 MG TABLET PO ONE (19:28)
[2017-09-05] MEDS ORDERED: GUAIFENESIN 600 MG TABLET.SA PO ONE (19:28)
--- NOTE | 2017-09-05 19:35 | ER Document Report ---
ED Respiratory Problem - General Chief Complaint: Cough Stated Complaint: SHORTNESS OF BREATH Time Seen by Provider: 09/05/17 19:07 Mode of Arrival: Ambulatory Information source: Patient Notes: 47-year-old female presented ED for cough cold congestion shortness of breath 2 days. She states she normally has inhaler but she is out of her inhaler at this time. She states she got a cough due to seasonal allergies. She denies any fevers chills nausea or vomiting. She is alert oriented respirations regular and unlabored with no wheezing no acute distress. Patient did have a dry cough. She also has a rash to both arms. She states she has been scratching it and cannot stop itching. TRAVEL OUTSIDE OF THE [place] IN LAST 30 DAYS: No - HPI Patient complains to provider of: Cough, Other - History of seasonal allergies and rashes to both arms Onset: Other - 2 days Duration: Continuous Initiating Event: URI Quality of pain: Other - Burning to the upper arms from resting rashes Severity: Moderate Pain Level: 3 Context: Smoker Short of Breath: Severe Cough: Nonproductive Sputum amount: None Associated symptoms: Congestion, Cough, PND, Runny nose, Short of breath. denies: Fever Similar symptoms previously: Yes Recently seen / treated by doctor: No - Related Data Allergies/Adverse Reactions: ciprofloxacin HCl [From Cipro] Allergy (Mild, Verified 09/05/17 16:57) Sulfa (Sulfonamide Antibiotics) Allergy (Mild, Verified 09/05/17 16:57) escitalopram oxalate [From Lexapro] Allergy (Verified 09/05/17 16:57) nitrofurantoin [From Macrobid] Allergy (Verified 09/05/17 16:57) Facial swelling nitrofurantoin macrocrystalline [From Macrobid] Allergy (Verified 09/05/17 16:57 ) Facial swelling contrast dye Allergy (Mild, Uncoded 09/05/17 16:57) Past Medical History - General Information source: Patient - Social History Smoking Status: Current Every Day Smoker Cigarette use (# per day): Yes - 15 cigarettes a day Chew tobacco use (# tins/day): No Smoking Education Provided: Yes - 4 minutes Frequency of alcohol use: None Lives with: Family Family History: CAD - Father of [place], Malignancy - Brother with colon cancer Patient has suicidal ideation: No Patient has homicidal ideation: No - Past Medical History Cardiac Medical History: Reports: Hx Hypercholesterolemia Pulmonary Medical History: Reports: Hx Bronchitis EENT Medical History: Reports: None Neurological Medical History: Reports: Hx Migraine Endocrine Medical History: Reports: None Renal/ Medical History: Reports: Hx Ectopic Malignancy Medical History: Reports: None GI Medical History: Reports: Hx Gastroesophageal Reflux Disease, Hx Hiatal Hernia, Hx Colonoscopy Musculoskeltal Medical History: Reports Hx Arthritis, Reports Hx Musculoskeletal Trauma Skin Medical History: Reports None Psychiatric Medical History: Reports: None Traumatic Medical History: Reports: Hx Fractures - Fractured ankle Infectious Medical History: Reports: None Past Surgical History: Reports: Hx Cholecystectomy, Hx Gynecologic Surgery - ectopic, D&C x2, Hx Hysterectomy, Hx Orthopedic Surgery - Left hand, left ankle x4, Hx Tubal Ligation - Immunizations Immunizations up to date: Yes Hx Diphtheria, Pertussis, Tetanus Vaccination: Yes Review of Systems - Review of Systems Constitutional: Recent illness EENT: Ear pain, Nose discharge, Sinus discharge, Throat pain Cardiovascular: No symptoms reported Respiratory: Cough, Short of breath. denies: Wheezing Gastrointestinal: No symptoms reported Genitourinary: No symptoms reported Female Genitourinary: No symptoms reported Musculoskeletal: No symptoms reported Skin: Rash - To both arms that she has been scratching for the last 3-4 days Hematologic/Lymphatic: No symptoms reported Neurological/Psychological: No symptoms reported -: Yes All other systems reviewed and negative Physical Exam - Vital signs Vitals: Temp Pulse Resp BP Pulse Ox 98 F 94 18 124/70 97 09/05/17 17:01 09/05/17 17:01 09/05/17 17:01 09/05/17 17:01 09/05/17 17:01 Interpretation: Normal - General General appearance: Appears well, Alert - HEENT Head: Normocephalic, Atraumatic Eyes: Normal Pupils: PERRL Ears: Normal External canal: Normal Tympanic membrane: Normal Sinus: Normal Nasal: Purulent discharge, Swelling Mouth/Lips: Normal Mucous membranes: Normal Pharynx: Post nasal drainage Neck: Normal - Respiratory Respiratory status: No respiratory distress Chest status: Nontender Breath sounds: Nonproductive cough. No: Productive cough, Rales, Rhonchi, Stridor, Wheezing Chest palpation: Normal - Cardiovascular Rhythm: Regular Heart sounds: Normal auscultation Murmur: No - Abdominal Inspection: Normal Distension: No distension Bowel sounds: Normal Tenderness: Nontender Organomegaly: No organomegaly - Back Back: Normal, Nontender - Extremities General upper extremity: Normal inspection, Nontender, Normal color, Normal ROM , Normal temperature General lower extremity: Normal inspection, Nontender, Normal color, Normal ROM , Normal temperature, Normal weight bearing. No: Amador's sign - Neurological Neuro grossly intact: Yes Cognition: Normal Orientation: AAOx4 Sai Coma Scale Eye Opening: Spontaneous [place] Coma Scale Verbal: Oriented Sai Coma Scale Motor: Obeys Commands Sai Coma Scale Total: 15 Speech: Normal Motor strength normal: LUE, RUE, LLE, RLE Sensory: Normal - Psychological Associated symptoms: Normal affect, Normal mood - Skin Skin Temperature: Warm Skin Moisture: Dry Skin Color: Normal Skin irregularity: Rash - Bilateral arms that she has been scratching until now she has open sores on both arms with no signs of infection at this time Irregularity with: Tenderness Course - Re-evaluation Re-evalutation: 09/05/17 19:53 After performing a Medical Screening Examination, I estimate there is LOW risk for ACUTE CORONARY SYNDROME, RESPIRATORY FAILURE, SEPSIS OR MENINGITIS, thus I consider the discharge disposition reasonable. I have reevaluated this patient multiple times and no significant life threatening changes are noted. The patient and I have discussed the diagnosis and risks, and we agree with discharging home with close follow-up. We also discussed returning to the Emergency Department immediately if new or worsening symptoms occur. We have discussed the symptoms which are most concerning (e.g., changing or worsening pain, trouble swallowing or breathing, neck stiffness, fever) that necessitate immediate return. Patient also has a rash to both arms that is not infected or inflamed. The areas are scabbed over from her scratching them so much. Patient was treated with prednisone and discharged home with prescription for prednisone and encouraged to follow-up with her primary doctor. Patient was instructed to please stop scratching the rash and to use a topical anti-itch cream and to use Benadryl at home. Patient was treated with Claritin 10 mg, Sudafed 30 mg, and Mucinex 600 mg p.o. in the ED for her cough cold congestion. - Vital Signs Vital signs: Temp Pulse Resp BP Pulse Ox 97.7 F 79 20 111/78 96 09/05/17 19:45 09/05/17 19:45 09/05/17 19:45 09/05/17 19:45 09/05/17 19:45 Discharge - Discharge Clinical Impression: Rash and nonspecific skin eruption URI (upper respiratory infection) Qualifiers: URI type: unspecified URI Qualified Code(s): J06.9 - Acute upper respiratory infection, unspecified Condition: Stable Disposition: HOME, SELF-CARE Instructions: Family Physicians / Practices Additional Instructions: UPPER RESPIRATORY ILLNESS: You have a viral infection of the respiratory passages -- a "cold." This common infection causes nasal congestion, drainage, and often sore throat and cough. It is highly contagious. The disease usually lasts about 10 to 14 days. There is no "cure" for the viral infection -- it must run its course. If there is a complication, such as bacterial infection in the nose, sinuses, middle ear, or bronchial tubes, antibiotics may be required. The antibiotics won't affect the virus. Drink plenty of fluids. A humidifier may help. An expectorant medication or decongestant may make you more comfortable. Use acetaminophen or ibuprofen for fever or aches. See the doctor if fever persists over two days, if there is any significant worsening of your symptoms, or if you simply fail to improve as expected. Please cleaned your rash to both arms that you have been scratching with some soap and water. Please do not scratch anymore as she will end up with a cellulitis if you continue to scratch the rash. I have given you some prednisone today and sent to home with a prescription for couple more days of prednisone. Please take this until it is completed. His follow-up with your primary doctor or take care in community clinic for continued problem with the rash. You were given Claritin 10 mg, Sudafed 30 mg, and Mucinex 600 mg in the ED for your cough cold congestion symptoms. ANTIHISTAMINES: An antihistamine has been given and/or prescribed to control your symptoms. Antihistamines are used for many reasons, including itching, watering eyes, runny nose, allergic swelling, hives, and insect stings. Antihistamines may cause drowsiness, especially with the first dose. Do not operate machinery or drive while under the effects of the medication. Other common side effects include dry mouth and eyes. In older persons, antihistamines can occasionally cause urinary retention, constipation, and trouble focusing the eyes. Do not combine the medication with alcohol, or with any other medication without talking to your doctor. DECONGESTANT MEDICATION: A decongestant medicine has been prescribed. Often this medicine is combined in the same tablet with an antihistamine or expectorant. This type of medicine is helpful in treating a bad cold or sinus condition, as well as in treatment of the nasal congestion of hay fever. It is not of much benefit for lung infections. Decongestant medicines are related to stimulants. They can cause an increase in blood pressure and heart rate. Persons with heart disease and high blood pressure should not take decongestants without discussing this with the physician. If you develop palpitations, chest pain, headache, or tremors, stop the medicine and consult your physician. COUGH-SUPPRESSANT & EXPECTORANT MEDICATION: You are to use a cough medication as needed for relief of symptoms. This medicine is a combination of an expectorant (to make the mucous thinner and more easily "coughed up") and a cough suppressant (to reduce the frequency of coughing). The cough-suppressant medicine is related to narcotics. You may experience mild nausea and sleepiness. Some patients who are very sensitive to narcotics may have stomach pain from this medicine. Taking the medicine with food reduces these side effects. Do not drive or work with machinery until you know how this medicine affects you. The expectorant should have no side effects. Iodine-containing expectorants (such as organidin) should not be taken by persons with active thyroid disease unless approved by your doctor. Call the doctor if you develop shortness of breath, hives, rash, itching, lightheadedness, or severe nausea and vomiting. STEROID MEDICATION: You have been given an injection of or oral medicine of the cortisone/ steroid class. This medication is used to control inflammation or allergy. Kevin t is usually only given for a short period of time, until the acute process subsides. There are usually no side effects from short-term use of cortisone-like medications. Some persons feel an increased sense of well-being and are not sleepy at bedtime. Long-term use of cortisone medications is best avoided, unless required for a severe condition. If your condition does not remit, or relapses after the course of corticosteroid medication, you should consult your physician. USE OF ACETAMINOPHEN (Tylenol): Acetaminophen may be taken for pain relief or fever control. It's much safer than aspirin, offering a wider range of "safe" dosages. It is safe during . Some brand names are Tylenol, Panadol, Datril, Anacin 3, Tempra, and Liquiprin. Acetaminophen can be repeated every four hours. The following are maximum recommended dosages: >89 pounds or adults 650 mg to 900 mg Acetaminophen can be repeated every four hours. Maximum dose not to exceed 4000 mg a day. SMOKING: If you smoke, you should stop smoking. The tar and chemicals in cigarette smoke are harmful. Smoking has been shown to cause: emphysema chronic bronchitis lung cancer mouth and throat cancer stomach and pancreas cancer premature aging defects In addition, smoking increases ear and lung infections in children of smokers. FOLLOW-UP CARE: If you have been referred to a physician for follow-up care, call the physician s office for an appointment as you were instructed or within the next two days. If you experience worsening or a significant change in your symptoms, notify the physician immediately or return to the Emergency Department at any time for re-evaluation. Prescriptions: Prednisone [Deltasone 20 mg Tablet] 3 tab PO DAILY 2 Days tablet Forms: Smoking Cessation Education, Return to Work
[2017-09-05 19:53] VITALS: BP 111/78
== END 2017-09-05 19:53 | disposition home or self-care (01) ==
LOC: ER 16:54
DX: J06.9 Acute upper respiratory infection, unspecified (principal); R21 Rash and other nonspecific skin eruption; F17.210 Nicotine dependence, cigarettes, uncomplicated; E78.00 Pure hypercholesterolemia, unspecified; Z90.49 Acquired absence of other specified parts of digestive tract; Z88.3 Allergy status to other anti-infective agents; Z88.2 Allergy status to sulfonamides; Z90.710 Acquired absence of both cervix and uterus
CPT/HCPCS: 99283; 99406

== ENCOUNTER 2017-09-09 09:54 | Emergency (ER) | payer SELFPAY ==
[2017-09-09 10:07] VITALS: BP 125/79
--- NOTE | 2017-09-09 11:30 | ER Document Report ---
ED ENT - General Chief Complaint: Sinus Congestion Stated Complaint: SINUS ISSUES Time Seen by Provider: 09/09/17 11:19 Mode of Arrival: Ambulatory Information source: Patient Notes: 47-year-old female presented ED for complaint of cough Cold congestion. She states the symptoms started last and was seen in the ED on 09/05/2017. Patient states that the pain is much worse to the right side of her face she continues to have a sore throat cough and nasal drainage. She states she is taking the Mucinex Claritin and Sudafed and ibuprofen as instructed and is not helping. She states when she leans forward she has a lot of pressure in the right side of her face. TRAVEL OUTSIDE OF THE [place] IN LAST 30 DAYS: No - HPI Patient complains to provider of: Nose problem, Throat problem Onset: Last week Onset/Duration: Persistent Quality of pain: Achy - Pressure, Dull Severity: Moderate Pain Level: 4 Context: Recent Illness Associated symptoms: Fever, Runny nose, Sinus drainage, Sore throat Similar symptoms previously: Yes Recently seen / treated by doctor: Yes - Related Data Allergies/Adverse Reactions: ciprofloxacin HCl [From Cipro] Allergy (Mild, Verified 09/09/17 10:43) Sulfa (Sulfonamide Antibiotics) Allergy (Mild, Verified 09/09/17 10:43) escitalopram oxalate [From Lexapro] Allergy (Verified 09/09/17 10:43) nitrofurantoin [From Macrobid] Allergy (Verified 09/09/17 10:43) Facial swelling nitrofurantoin macrocrystalline [From Macrobid] Allergy (Verified 09/09/17 10:43 ) Facial swelling contrast dye Allergy (Mild, Uncoded 09/09/17 10:43) Past Medical History - General Information source: Patient - Social History Smoking Status: Current Every Day Smoker Cigarette use (# per day): Yes Chew tobacco use (# tins/day): No Smoking Education Provided: Yes - 4 minutes Frequency of alcohol use: None Drug Abuse: None Lives with: Family Family History: CAD - Father of [place], Malignancy - Brother with colon cancer Patient has suicidal ideation: No Patient has homicidal ideation: No - Past Medical History Cardiac Medical History: Reports: Hx Hypercholesterolemia Pulmonary Medical History: Reports: Hx Bronchitis EENT Medical History: Reports: None Neurological Medical History: Reports: Hx Migraine Endocrine Medical History: Reports: None Renal/ Medical History: Reports: Hx Ectopic Malignancy Medical History: Reports: None GI Medical History: Reports: Hx Gastroesophageal Reflux Disease, Hx Hiatal Hernia, Hx Colonoscopy Musculoskeltal Medical History: Reports Hx Arthritis, Reports Hx Musculoskeletal Trauma Skin Medical History: Reports None Psychiatric Medical History: Reports: None Traumatic Medical History: Reports: Hx Fractures - Fractured ankle Infectious Medical History: Reports: None Past Surgical History: Reports: Hx Cholecystectomy, Hx Gynecologic Surgery - ectopic, D&C x2, Hx Hysterectomy, Hx Orthopedic Surgery - Left hand, left ankle x4, Hx Tubal Ligation - Immunizations Immunizations up to date: Yes Hx Diphtheria, Pertussis, Tetanus Vaccination: Yes Review of Systems - Review of Systems Constitutional: Fever, Recent illness EENT: Nose congestion, Sinus pressure, Throat pain, Other - Facial pain Cardiovascular: No symptoms reported Respiratory: Cough Gastrointestinal: No symptoms reported Genitourinary: No symptoms reported Female Genitourinary: No symptoms reported Musculoskeletal: No symptoms reported Skin: No symptoms reported Hematologic/Lymphatic: No symptoms reported Neurological/Psychological: No symptoms reported Physical Exam - Vital signs Vitals: Temp Pulse Resp BP Pulse Ox 98.5 F 85 20 125/79 97 09/09/17 10:06 09/09/17 10:06 09/09/17 10:06 09/09/17 10:06 09/09/17 10:06 Interpretation: Normal - General General appearance: Appears well, Alert - HEENT Head: Normocephalic, Atraumatic Eyes: Normal Pupils: PERRL Sinus: Frontal, Mastoid, Maxillary, Tenderness, Other - Right sinus tenderness Nasal: Purulent discharge Mouth/Lips: Normal Pharynx: Post nasal drainage Neck: Anterior cervical chain - Respiratory Respiratory status: No respiratory distress Chest status: Nontender Breath sounds: Nonproductive cough Chest palpation: Normal - Cardiovascular Rhythm: Regular Heart sounds: Normal auscultation Murmur: No - Abdominal Inspection: Normal Distension: No distension Bowel sounds: Normal Tenderness: Nontender Organomegaly: No organomegaly - Back Back: Normal, Nontender - Extremities General upper extremity: Normal inspection, Nontender, Normal color, Normal ROM , Normal temperature General lower extremity: Normal inspection, Nontender, Normal color, Normal ROM , Normal temperature, Normal weight bearing. No: Amador's sign - Neurological Neuro grossly intact: Yes Cognition: Normal Orientation: AAOx4 [place] Coma Scale Eye Opening: Spontaneous [place] Coma Scale Verbal: Oriented [place] Coma Scale Motor: Obeys Commands Sai Coma Scale Total: 15 Speech: Normal Motor strength normal: LUE, RUE, LLE, RLE Sensory: Normal - Psychological Associated symptoms: Normal affect, Normal mood - Skin Skin Temperature: Warm Skin Moisture: Dry Skin Color: Normal Course - Re-evaluation Re-evalutation: 09/09/17 11:30 I have treated this patient with a prescription for Augmentin for her sinusitis on the right side. She is to continue with her other upper respiratory medications and treatments. After performing a Medical Screening Examination, I estimate there is LOW risk for ACUTE CORONARY SYNDROME, RESPIRATORY FAILURE, SEPSIS OR MENINGITIS, thus I consider the discharge disposition reasonable. I have reevaluated this patient multiple times and no significant life threatening changes are noted. The patient and I have discussed the diagnosis and risks, and we agree with discharging home with close follow-up. We also discussed returning to the Emergency Department immediately if new or worsening symptoms occur. We have discussed the symptoms which are most concerning (e.g., changing or worsening pain, trouble swallowing or breathing, neck stiffness, fever) that necessitate immediate return. - Vital Signs Vital signs: Temp Pulse Resp BP Pulse Ox 98.5 F 85 20 125/79 97 09/09/17 10:06 09/09/17 10:06 09/09/17 10:06 09/09/17 10:06 09/09/17 10:06 Discharge - Discharge Clinical Impression: Sinusitis Qualifiers: Sinusitis location: unspecified location Chronicity: acute Recurrence: not specified as recurrent Qualified Code(s): J01.90 - Acute sinusitis, unspecified Condition: Stable Disposition: HOME, SELF-CARE Instructions: Family Physicians / Practices Additional Instructions: Sinusitis You have sinusitis, an infection of the sinus cavities of the face. The sinuses are air-filled chambers which open into the inside of the nose. Bacteria and pus fill a sinus, causing pain, drainage, and fever. Sinusitis is treated with antibiotics. Often, expectorants (to thin the sinus mucous) or decongestants (to reduce swelling) are prescribed as well. Healing requires seven to 10 days. Avoid chemical fumes, pollens, dusts, and smoke (especially cigarette smoke ). Keep the air humidified in your bedroom and work area and take plenty of liquids by mouth. This condition can be serious if the infection spreads. If your symptoms worsen, or if you develop severe headache, high fever, stiff neck, or a rash, you must call the doctor or return for re-evaluation. Augmentin Augmentin is a mixture of amoxicillin and clavulanate. Amoxicillin is a member of the penicillin family. It covers the germs likely to cause ear, bronchial, and urinary infections better than plain penicillin. The addition of clavulanate allows it to cover staph infections of the skin, as well as resistant cases of ear and sinus infections. Your physician has chosen Augmentin for you because of the special nature of your situation. Augmentin is best taken with meals. Nausea after taking the medication is rare, but can occur. Diarrhea can occur, particularly in small children. Vaginal yeast infections, and oral thrush in infants are also common. Contact your physician if these problems occur. Allergy to penicillins is common. If you have had an allergic reaction to any drug of the penicillin family, you should never take any other penicillin. Notify your doctor at once if you develop hives, shortness of breath, swelling, or faintness. Acetaminophen Acetaminophen may be taken for pain relief or fever control. It's much safer than aspirin, offering a wider range of "safe" dosages. It is safe during . Some brand names are Tylenol, Panadol, Datril, Anacin 3, Tempra, and Liquiprin. Acetaminophen can be repeated every four hours. The following are maximum recommended dosages: WEIGHT Dose Drops Elixir Chewable( 80mg) (LBS.) drprs=droppers tsp=teaspoon 6 40 mg .4 ml (1/2) 6-11 80 mg .8 ml (full) 1/2 tsp 1 tab 12-16 120 mg 1 1/2 drprs 3/4 tsp 1 1/2 tabs 17-23 160 mg 2 drprs 1 tsp 2 tabs 24-30 240 mg 3 drprs 1 1/2 tsp 3 tabs 30-35 320 mg 2 tsp 4 tabs 36-41 360 mg 2 1/4 tsp 4 1 /2 tabs 42-47 400 mg 2 1/2 tsp 5 tabs 48-53 480 mg 3 tsp 6 tabs 54-59 520 mg 3 1/4 tsp 6 1 /2 tabs 60-64 560 mg 3 1/2 tsp 7 tabs 65-70 600 mg 3 3/4 tsp 7 1 /2 tabs 71-76 640 mg 4 tsp 8 tabs 77-82 720 mg 4 1/2 tsp 9 tabs 83-88 800 mg 5 tsp 10 tabs >89 pounds or adults 650 mg to 900 mg Acetaminophen can be repeated every four hours. Maximum daily dose not to exceed 4000 mg. These maximum recommended dosages are slightly higher than the dosages written on the product container, but these dosages are very safe and well below the toxic dosage for acetaminophen. Continue treatment as previously discussed for your upper respiratory infection. Warm moist compresses to the face will also help with the discomfort FOLLOW-UP CARE: If you have been referred to a physician for follow-up care, call the physician s office for an appointment as you were instructed or within the next two days. If you experience worsening or a significant change in your symptoms, notify the physician immediately or return to the Emergency Department at any time for re-evaluation. Prescriptions: Amox Tr/Potassium Clavulanate [Augmentin 875-125 Tablet] 1 tab PO BID 10 Days tablet Forms: Smoking Cessation Education, Return to Work
== END 2017-09-09 11:30 | disposition home or self-care (01) ==
LOC: ER 09:54
DX: J01.90 Acute sinusitis, unspecified (principal); R05 Cough; R50.9 Fever, unspecified; E78.00 Pure hypercholesterolemia, unspecified; F17.210 Nicotine dependence, cigarettes, uncomplicated; Z88.2 Allergy status to sulfonamides; Z88.3 Allergy status to other anti-infective agents; Z90.49 Acquired absence of other specified parts of digestive tract; Z90.710 Acquired absence of both cervix and uterus
CPT/HCPCS: 99283; 99406

== ENCOUNTER 2017-10-29 14:36 | Emergency (ER) | payer SELFPAY ==
[2017-10-29 14:46] VITALS: BP 118/94
--- NOTE | 2017-10-29 15:07 | ER Document Report ---
HPI - HPI Patient complains to provider of: Left ankle pain Onset: Other - 3 days Onset/Duration: Worse Quality of pain: Achy Pain Level: 3 Context: She presents complaining of left anterior ankle pain for the past 3 days. Patient states she noticed a bluish tint to the skin today and is concerned about possible blood clot. Patient also worried about any hardware failure from her previous orthopedic surgeries. She denies any new injury. Patient denies any difficulty breathing or chest pain. Associated Symptoms: Other - Ankle pain Relieved by: Denies Similar symptoms previously: No Recently seen / treated by doctor: No - ROS ROS below otherwise negative: Yes Systems Reviewed and Negative: Yes All other systems reviewed and negative - CONSTITUTIONAL Constitutional: DENIES: Fever - CARDIOVASCULAR Cardiovascular: DENIES: Chest pain - RESPIRATORY Respiratory: DENIES: Trouble Breathing, Coughing - REPRODUCTIVE Reproductive: DENIES: : - MUSCULOSKELETAL Musculoskeletal: REPORTS: Extremity pain - DERM Skin Color: Ecchymosis Past Medical History - General Information source: Patient - Social History Smoking Status: Never Smoker Frequency of alcohol use: None Drug Abuse: None Occupation: Housekeeping Family History: CAD - Father of [place], Malignancy - Brother with colon cancer - Past Medical History Cardiac Medical History: Reports: Hx Hypercholesterolemia Denies: Hx Coronary Artery Disease, Hx Heart Attack, Hx Hypertension Pulmonary Medical History: Reports: Hx Bronchitis Denies: Hx Asthma, Hx COPD, Hx Pneumonia Neurological Medical History: Reports: Hx Migraine. Denies: Hx Cerebrovascular Accident, Hx Seizures Renal/ Medical History: Reports: Hx Ectopic . Denies: Hx Peritoneal Dialysis GI Medical History: Reports: Hx Gastroesophageal Reflux Disease, Hx Hiatal Hernia, Hx Colonoscopy Musculoskeltal Medical History: Reports Hx Arthritis, Reports Hx Musculoskeletal Trauma Traumatic Medical History: Reports: Hx Fractures - Fractured ankle Past Surgical History: Reports: Hx Cholecystectomy, Hx Gynecologic Surgery - ectopic, D&C x2, Hx Hysterectomy, Hx Orthopedic Surgery - Left hand, left ankle x4, Hx Tubal Ligation - Immunizations Immunizations up to date: Yes Hx Diphtheria, Pertussis, Tetanus Vaccination: Yes Vertical Provider Document - CONSTITUTIONAL Agree With Documented VS: Yes Exam Limitations: No Limitations General Appearance: WD/WN, No Apparent Distress - INFECTION CONTROL TRAVEL OUTSIDE OF THE [place] IN LAST 30 DAYS: No - HEENT HEENT: Atraumatic, Normocephalic - NECK Neck: Normal Inspection - RESPIRATORY Respiratory: Breath Sounds Normal, No Respiratory Distress - CARDIOVASCULAR Cardiovascular: Regular Rate, Regular Rhythm Pulses: Normal: Dorsalis pedis - BACK Back: Normal Inspection - MUSCULOSKELETAL/EXTREMETIES Musculoskeletal/Extremeties: MAEW, FROM, Tender - Tenderness to anterior aspect of left ankle, No Edema - NEURO Level of Consciousness: Awake, Alert, Appropriate Motor/Sensory: No Motor Deficit - DERM Integumentary: Warm, Dry Notes: Patient with what looks to be a spider vein to anterior aspect of the lower ankle with surrounding ecchymosis. Course - Re-evaluation Re-evalutation: 10/29/17 15:48 Patient without any obvious injury on x-ray. Patient's exam findings concerning for a ruptured small blood vessel. No concern for DVT, cellulitis or septic arthritis. - Vital Signs Vital signs: Temp Pulse Resp BP Pulse Ox 98.2 F 95 20 118/94 H 96 10/29/17 14:42 10/29/17 14:42 10/29/17 14:42 10/29/17 14:42 10/29/17 14:42 - Diagnostic Test Radiology reviewed: Image reviewed, Reports reviewed Discharge - Discharge Clinical Impression: Ankle contusion Qualifiers: Encounter type: initial encounter Laterality: left Qualified Code(s): S90.02XA - Contusion of left ankle, initial encounter Condition: Stable Disposition: HOME, SELF-CARE Additional Instructions: Return immediately for any new or worsening symptoms Followup with your primary care provider, call tomorrow to make a followup appointment Follow-up with your orthopedic surgeon for recheck, call tomorrow for an appointment Referrals: [facility] [Provider Group] - Follow up as needed
--- NOTE | 2017-10-29 15:34 | RADIOLOGY REPORT (SQ) ---
EXAM DESCRIPTION: ANKLE LEFT COMPLETE COMPLETED DATE/TIME: 10/29/2017 3:20 pm REASON FOR STUDY: ankle pain, hx previous surgery COMPARISON: None. NUMBER OF VIEWS: Three views. TECHNIQUE: AP, lateral, and oblique radiographic images acquired of the left ankle. LIMITATIONS: None. FINDINGS: MINERALIZATION: Normal. BONES: Old bimalleolar fractures. No acute fracture or dislocation. JOINTS: Mild posttraumatic degenerative changes is seen in the ankle. SOFT TISSUES: No soft tissue swelling. No foreign body. OTHER: A long compression plate is present on the distal fibula. 2 cannulated screws are present in the medial malleolus. IMPRESSION: Internal fixation of old fractures with mild degenerative joint changes. TECHNICAL DOCUMENTATION: JOB ID: [id number] [employer]- All Rights Reserved Reading location - IP/workstation name: [email or web address]
== END 2017-10-29 15:39 | disposition home or self-care (01) ==
LOC: ER 14:36
DX: S90.02XA Contusion of left ankle, initial encounter (principal); M25.572 Pain in left ankle and joints of left foot; X58.XXXA Exposure to other specified factors, initial encounter; E78.00 Pure hypercholesterolemia, unspecified
CPT/HCPCS: 99283

== ENCOUNTER 2018-04-04 10:03 | Emergency (ER) | payer SELFPAY ==
--- NOTE | 2018-04-04 10:39 | ER Document Report ---
HPI - HPI Time Seen by Provider: 04/04/18 10:32 Onset/Duration: Persistent Quality of pain: Achy Pain Level: 1 Context: Patient presents complaining of cough for the past 3 weeks with sore throat for the past 3 days. Patient reports noting a red streaks to her sputum. Patient states that she did have an oral cough drop that was red and is uncertain if the cough drop may have caused the sputum to be discolored. Patient denies any fever. Associated Symptoms: Productive cough, Sore throat. denies: Chest pain, Earache , Nausea, Vomiting Exacerbated by: Denies Relieved by: Denies Similar symptoms previously: No Recently seen / treated by doctor: No - ROS ROS below otherwise negative: Yes Systems Reviewed and Negative: Yes All other systems reviewed and negative - CONSTITUTIONAL Constitutional: DENIES: Fever - EENT EENT: REPORTS: Sore Throat - CARDIOVASCULAR Cardiovascular: DENIES: Chest pain - RESPIRATORY Respiratory: REPORTS: Coughing. DENIES: Trouble Breathing - GASTROINTESTINAL Gastrointestinal: DENIES: Abdominal Pain, Nausea, Patient vomiting, Diarrhea - REPRODUCTIVE Reproductive: DENIES: : - MUSCULOSKELETAL Musculoskeletal: DENIES: Back Pain - DERM Skin Color: Normal Skin Problems: None Past Medical History - General Information source: Patient - Social History Smoking Status: Current Every Day Smoker Smoking Education Provided: Yes Frequency of alcohol use: None Drug Abuse: None Occupation: [employer] Family History: CAD - Father of [place], Malignancy - Brother with colon cancer - Past Medical History Cardiac Medical History: Reports: Hx Hypercholesterolemia Pulmonary Medical History: Reports: Hx Bronchitis Neurological Medical History: Reports: Hx Migraine Renal/ Medical History: Reports: Hx Ectopic . Denies: Hx Peritoneal Dialysis GI Medical History: Reports: Hx Gastroesophageal Reflux Disease, Hx Hiatal Hernia, Hx Colonoscopy Musculoskeletal Medical History: Reports Hx Arthritis, Reports Hx Musculoskeletal Trauma Traumatic Medical History: Reports: Hx Fractures - Fractured ankle Past Surgical History: Reports: Hx Cholecystectomy, Hx Gynecologic Surgery - ectopic, D&C x2, Hx Hysterectomy, Hx Orthopedic Surgery - Left hand, left ankle x4, Hx Tubal Ligation - Immunizations Immunizations up to date: Yes Hx Diphtheria, Pertussis, Tetanus Vaccination: Yes Vertical Provider Document - CONSTITUTIONAL Agree With Documented VS: Yes Exam Limitations: No Limitations General Appearance: WD/WN, No Apparent Distress - INFECTION CONTROL TRAVEL OUTSIDE OF THE [place] IN LAST 30 DAYS: No - HEENT HEENT: Atraumatic, Normocephalic, Pharyngeal Tenderness, Pharyngeal Erythema. negative: Pharyngeal Exudate, Tympanic Membrane Red, Tympanic Membrane Bulging - NECK Neck: Normal Inspection, Supple. negative: Lymphadenopathy-Left, Lymphadenopathy-Right - RESPIRATORY Respiratory: No Respiratory Distress, Chest Non-Tender, Rhonchi. negative: Rales, Wheezing - CARDIOVASCULAR Cardiovascular: Regular Rate, Regular Rhythm, No Murmur - BACK Back: Normal Inspection - MUSCULOSKELETAL/EXTREMETIES Musculoskeletal/Extremeties: LEONID HERNANDEZ - NEURO Level of Consciousness: Awake, Alert, Appropriate Motor/Sensory: No Motor Deficit - DERM Integumentary: Warm, Dry, No Rash Course - Re-evaluation Re-evalutation: 04/04/18 11:45 Patient's respirations even unlabored, no concern for strep or pneumonia at this time. We will treat symptomatically with good return precautions. - Vital Signs Vital signs: Temp Pulse Resp BP Pulse Ox 98.5 F 92 20 128/82 H 97 04/04/18 10:12 04/04/18 10:12 04/04/18 10:12 04/04/18 10:12 04/04/18 10:12 - Laboratory Laboratory results interpreted by me: 04/04/18 11:45 Labs- Entire Visit 04/04/18 10:39 Group A Strep Rapid NEGATIVE - Diagnostic Test Radiology reviewed: Image reviewed, Reports reviewed Discharge - Discharge Clinical Impression: Sore throat Upper respiratory infection Qualifiers: URI type: unspecified URI Qualified Code(s): J06.9 - Acute upper respiratory infection, unspecified Condition: Stable Disposition: HOME, SELF-CARE Instructions: Sore Throat ([facility]), Upper Respiratory Illness ([facility]) Additional Instructions: Return immediately for any new or worsening symptoms Followup with your primary care provider, call tomorrow to make a followup appointment Prescriptions: Benzonatate [Tessalon Perle 100 mg Capsule] 100 mg PO Q8HP PRN #20 cap PRN Reason: Albuterol Sulfate [Proair Hfa Inhalation Aerosol 8.5 gm Mdi] 2 puff IH Q4 PRN # 1 mdi PRN Reason: Naproxen [Naprosyn 250 Nmg Tablet] 1 tab PO BID #14 tablet Forms: Smoking Cessation Education, Return to Work Referrals: [facility] [Provider Group] - Follow up as needed
--- NOTE | 2018-04-04 11:38 | RADIOLOGY REPORT (SQ) ---
EXAM DESCRIPTION: CHEST 2 VIEWS COMPLETED DATE/TIME: 04/04/2018 11:16 am REASON FOR STUDY: cough COMPARISON: None. EXAM PARAMETERS: NUMBER OF VIEWS: two views TECHNIQUE: Digital Frontal and Lateral radiographic views of the chest acquired. RADIATION DOSE: NA LIMITATIONS: none FINDINGS: LUNGS AND PLEURA: No opacities, masses or pneumothorax. No pleural effusion. MEDIASTINUM AND HILAR STRUCTURES: No masses or contour abnormalities. HEART AND VASCULAR STRUCTURES: Heart normal size. No evidence for failure. BONES: No acute findings. HARDWARE: None in the chest. OTHER: No other significant finding. IMPRESSION: NO ACUTE RADIOGRAPHIC FINDING IN THE CHEST. TECHNICAL DOCUMENTATION: JOB ID: [id number] [employer]- All Rights Reserved Reading location - IP/workstation name: [email or web address]
[2018-04-04 12:14] VITALS: BP 122/81
== END 2018-04-04 12:17 | disposition home or self-care (01) ==
LOC: ER 10:03
DX: J02.9 Acute pharyngitis, unspecified (principal); J06.9 Acute upper respiratory infection, unspecified; F17.200 Nicotine dependence, unspecified, uncomplicated; E78.00 Pure hypercholesterolemia, unspecified; Z90.49 Acquired absence of other specified parts of digestive tract; Z90.710 Acquired absence of both cervix and uterus
CPT/HCPCS: 71046; 87070; 87880; 99283

== ENCOUNTER 2018-05-22 11:12 | Emergency (ER) | payer SELFPAY ==
--- NOTE | 2018-05-22 11:53 | ER Document Report ---
ED Medical Screen (RME) - General Chief Complaint: Anxiety Stated Complaint: PSYCH ISSUE Time Seen by Provider: 05/22/18 11:51 Notes: Patient says she is having a nervous breakdown. Primary reason is her marriage. Patient says she is feeling very anxious and nervous for several years, is gotten worse in the past year. She is extremely tearful and crying. However, she denies any suicidal thoughts or intent. Has not been seen by a mental health counselor. Is not on any medications. TRAVEL OUTSIDE OF THE [place] IN LAST 30 DAYS: No - Related Data Allergies/Adverse Reactions: ciprofloxacin HCl [From Cipro] Allergy (Mild, Verified 05/22/18 11:12) Sulfa (Sulfonamide Antibiotics) Allergy (Mild, Verified 05/22/18 11:12) escitalopram oxalate [From Lexapro] Allergy (Verified 05/22/18 11:12) nitrofurantoin [From Macrobid] Allergy (Verified 05/22/18 11:12) Facial swelling nitrofurantoin macrocrystalline [From Macrobid] Allergy (Verified 05/22/18 11:12) Facial swelling contrast dye Allergy (Mild, Uncoded 04/04/18 10:04) Past Medical History - Social History Chew tobacco use (# tins/day): No Frequency of alcohol use: None Drug Abuse: None - Past Medical History Cardiac Medical History: Reports: Hx Hypercholesterolemia Denies: Hx Coronary Artery Disease, Hx Heart Attack, Hx Hypertension Pulmonary Medical History: Reports: Hx Bronchitis Denies: Hx Asthma, Hx COPD, Hx Pneumonia Neurological Medical History: Reports: Hx Migraine. Denies: Hx Cerebrovascular Accident, Hx Seizures Renal/ Medical History: Reports: Hx Ectopic . Denies: Hx Peritoneal Dialysis GI Medical History: Reports: Hx Gastroesophageal Reflux Disease, Hx Hiatal Hernia, Hx Colonoscopy Musculoskeltal Medical History: Reports Hx Arthritis, Reports Hx Musculoskeletal Trauma Traumatic Medical History: Reports: Hx Fractures - Fractured ankle Past Surgical History: Reports: Hx Cholecystectomy, Hx Gynecologic Surgery - ectopic, D&C x2, Hx Hysterectomy, Hx Orthopedic Surgery - Left hand, left ankle x4, Hx Tubal Ligation - Immunizations Immunizations up to date: Yes Hx Diphtheria, Pertussis, Tetanus Vaccination: Yes Physical Exam - Vital signs Vitals: Temp Pulse Resp BP Pulse Ox 98.4 F 108 H 16 136/90 H 95 05/22/18 11:35 05/22/18 11:35 05/22/18 11:35 05/22/18 11:35 05/22/18 11:35 Course - Vital Signs Vital signs: Temp Pulse Resp BP Pulse Ox 98.4 F 108 H 16 136/90 H 95 05/22/18 11:35 05/22/18 11:35 05/22/18 11:35 05/22/18 11:35 05/22/18 11:35
--- NOTE | 2018-05-22 12:27 | EKG REPORT ---
SEVERITY:- ABNORMAL ECG - SINUS RHYTHM LEFT ATRIAL ABNORMALITY : Confirmed by: Walter Man MD 22-May-2018 12:26:38
[2018-05-22 12:35] LABS: ABSOLUTE BASOPHILS # (AUTO) 0.1 10^3/uL (0.0-0.2); ABSOLUTE LYMPHOCYTES (AUTO) 2.7 10^3/uL (0.5-4.7); ABSOLUTE MONOCYTES (AUTO) 1.6 10^3/uL (0.1-1.4); ABSOLUTE NEUT (AUTO) 9.1 10^3/uL (1.7-8.2); BASOPHILS % (AUTO) 0.7 % (0-2); EOSINOPHILS % (AUTO) 0.2 % (0-6); HEMATOCRIT 44.5 % (36.0-47.0); HEMOGLOBIN 15.2 g/dL (12.0-15.5); LYMPHOCYTES % (AUTO) 20.1 % (13-45); MEAN CORPUSCULAR HEMOGLOBIN 31.4 pg (27.0-33.4); MEAN CORPUSCULAR HGB CONC 34.1 g/dL (32.0-36.0); MEAN CORPUSCULAR VOLUME 92 fl (80-97); MONOCYTES % (AUTO) 11.6 % (3-13); PLATELET COUNT 382 10^3/uL (150-450); RED BLOOD COUNT 4.84 10^6/uL (3.72-5.28); RED CELL DISTRIBUTION WIDTH 13.8 % (11.5-14.0); SEGMENTED NEUTROPHILS % (AUTO) 67.4 % (42-78); TOTAL CELLS COUNTED % (AUTO) 100 %; WHITE BLOOD COUNT 13.5 10^3/uL (4.0-10.5)
[2018-05-22 12:53] LABS: ALANINE AMINOTRANSFERASE 20 U/L (9-52); ALBUMIN 4.2 g/dL (3.5-5.0); ALKALINE PHOSPHATASE 77 U/L (38-126); ANION GAP 7 (5-19); ASPARTATE AMINO TRANSFERASE 13 U/L (14-36); BILIRUBIN,DIRECT 0.2 mg/dL (0.0-0.4); BILIRUBIN,TOTAL 0.4 mg/dL (0.2-1.3); BLOOD UREA NITROGEN 10 mg/dL (7-20); CALCIUM 8.9 mg/dL (8.4-10.2); CARBON DIOXIDE 27 mmol/L (22-30); CHLORIDE 110 mmol/L (98-107); GLUCOSE 60 mg/dL (75-110); POTASSIUM 3.5 mmol/L (3.6-5.0); SODIUM 143.8 mmol/L (137-145); TOTAL PROTEIN 6.7 g/dL (6.3-8.2)
[2018-05-22 12:55] LABS: ACETAMINOPHEN < 10 ug/mL (10-30); ALCOHOL < 10 mg/dL (NONE DETECTED); SALICYLATE < 1.0 mg/dL (2.0-20.0)
[2018-05-22 13:01] LABS: URINE AMPHETAMINES SCREEN NEGATIVE; URINE BARBITURATES SCREEN NEGATIVE; URINE BENZODIAZEPINES SCREEN NEGATIVE; URINE COCAINE SCREEN NEGATIVE; URINE MARIJUANA (THC) SCREEN NEGATIVE; URINE METHADONE SCREEN NEGATIVE; URINE PHENCYCLIDINE SCREEN NEGATIVE
[2018-05-22 13:05] LABS: APPEARANCE,URINE SLIGHTLY-CLOUDY; BILIRUBIN,URINE NEGATIVE (NEGATIVE); COLOR,URINE YELLOW; GLUCOSE, URINE NEGATIVE (NEGATIVE); KETONES,URINE NEGATIVE (NEGATIVE); LEUKOCYTE ESTERASE,URINE TRACE (NEGATIVE); NITRITE,URINE NEGATIVE (NEGATIVE); PROTEIN,URINE NEGATIVE (NEGATIVE); URINE SPECIFIC GRAVITY 1.009; UROBILINOGEN,URINE NEGATIVE mg/dL (<2.0)
--- NOTE | 2018-05-22 13:57 | ER Document Report ---
ED Psych Disorder / Suicide <ISA DELGADO - Last Filed: 05/22/18 16:12> - General TRAVEL OUTSIDE OF THE [place] IN LAST 30 DAYS: No <SYED WINTERS - Last Filed: 05/22/18 16:37> - General Chief Complaint: Anxiety Stated Complaint: PSYCH ISSUE Time Seen by Provider: 05/22/18 11:51 Primary Care Provider: [facility] [Outside] - Follow up in 3-5 days [facility] [Outside] - Follow up as needed Notes: 47-year-old female presents to the emergency department because she states she is having a nervous breakdown. She says it is due to her marriage. Patient has been very anxious and has gotten much worse over the last 2-3 months. This has been going on for years but over the last year is gotten progressively worse. Upon triage she was tearful and crying but when I met with her she was calm in the room. She denies any suicidal ideations or homicidal ideations. She is currently being treated for an acute sinusitis and is on Augmentin and prednisone. She denies any other stressors. She denies fevers, chills, nausea, vomiting, diarrhea, shortness of breath, chest pain, lightheadedness, dizziness, complains of headache. (SYED WINTERS) - Related Data Allergies/Adverse Reactions: ciprofloxacin HCl [From Cipro] Allergy (Mild, Verified 05/22/18 11:12) Sulfa (Sulfonamide Antibiotics) Allergy (Mild, Verified 05/22/18 11:12) escitalopram oxalate [From Lexapro] Allergy (Verified 05/22/18 11:12) nitrofurantoin [From Macrobid] Allergy (Verified 05/22/18 11:12) Facial swelling nitrofurantoin macrocrystalline [From Macrobid] Allergy (Verified 05/22/18 11:12) Facial swelling contrast dye Allergy (Mild, Uncoded 04/04/18 10:04) Past Medical History - Social History Smoking Status: Never Smoker Chew tobacco use (# tins/day): No Frequency of alcohol use: None Drug Abuse: None Family History: CAD - Father of [place], Malignancy - Brother with colon cancer Patient has suicidal ideation: No Patient has homicidal ideation: No - Past Medical History Cardiac Medical History: Reports: Hx Hypercholesterolemia Denies: Hx Coronary Artery Disease, Hx Heart Attack, Hx Hypertension Pulmonary Medical History: Reports: Hx Bronchitis Denies: Hx Asthma, Hx COPD, Hx Pneumonia Neurological Medical History: Reports: Hx Migraine. Denies: Hx Cerebrovascular Accident, Hx Seizures Renal/ Medical History: Reports: Hx Ectopic . Denies: Hx Peritoneal Dialysis GI Medical History: Reports: Hx Gastroesophageal Reflux Disease, Hx Hiatal Hernia, Hx Colonoscopy Musculoskeletal Medical History: Reports Hx Arthritis, Reports Hx Musculoskeletal Trauma Traumatic Medical History: Reports: Hx Fractures - Fractured ankle Past Surgical History: Reports: Hx Cholecystectomy, Hx Gynecologic Surgery - ect opic, D&C x2, Hx Hysterectomy, Hx Orthopedic Surgery - Left hand, left ankle x4, Hx Tubal Ligation - Immunizations Immunizations up to date: Yes Hx Diphtheria, Pertussis, Tetanus Vaccination: Yes <SYED WINTERS - Last Filed: 05/22/18 16:37> Review of Systems - Review of Systems Constitutional: See HPI EENT: See HPI Cardiovascular: See HPI Respiratory: See HPI Gastrointestinal: See HPI Genitourinary: No symptoms reported Female Genitourinary: No symptoms reported Musculoskeletal: No symptoms reported Skin: No symptoms reported Hematologic/Lymphatic: No symptoms reported Neurological/Psychological: No symptoms reported <SYED WINTERS - Last Filed: 05/22/18 16:37> Physical Exam <SYED WINTERS - Last Filed: 05/22/18 16:37> - Vital signs Vitals: Temp Pulse Resp BP Pulse Ox 98.4 F 108 H 16 136/90 H 95 05/22/18 11:35 05/22/18 11:35 05/22/18 11:35 05/22/18 11:35 05/22/18 11:35 - Notes Notes: PHYSICAL EXAMINATION: Reviewed vital signs and charting by RN GENERAL: Alert, interacts well. No acute distress. HEAD: Normocephalic, atraumatic. EYES: Pupils equal, round. Extraocular movements intact. ENT: Oral mucosa moist. NECK: Full range of motion. Supple. Trachea midline. LUNGS: Clear to auscultation bilaterally, no wheezes, rales, or rhonchi. No respiratory distress. HEART: Regular rate and rhythm. No murmur ABDOMEN: soft, non-tender. Non-distended. Bowel sounds present in all 4 quadrants. no McBurney's point tenderness, no Castillo sign. EXTREMITIES: Moves all 4 extremities spontaneously. No edema, No cyanosis. NEUROLOGICAL: Alert and oriented x3. Normal speech. PSYCH: Patient with depressed mood, laying on the bed, appropriate with linear thought process. Patient in no acute distress. Denies suicidal or homicidal ideations. SKIN: Warm, dry, normal turgor. No rashes or lesions noted. (SYED WINTERS) Course - Laboratory Result Diagrams: 05/22/18 12:22 05/22/18 12:22 <ISA DELGADO - Last Filed: 05/22/18 16:12> - Laboratory Result Diagrams: 05/22/18 12:22 05/22/18 12:22 <SYED WINTERS - Last Filed: 05/22/18 16:37> - Re-evaluation Re-evalutation: 05/22/18 13:56 41 E6 female in acute crisis having a nervous breakdown. Denies suicidal or ho micidal's. Psych consult has been placed. Physical exam was normal. Lab work was all within normal limits. Glucose was slightly elevated but patient has been on prednisone since May 18. EKG showed no evidence of STEMI or any concerning pathology. Patient is medically stable for psychiatric evaluation. 05/22/18 16:31 Psychiatry team evaluated the patient and deemed she is not eligible for IVC. They had at length discussion with her and she is open outpatient counseling. Again, she has no suicidal. They feel that she is appropriate and safe for discharge with follow-up counseling and no immediate need for medications. The psych team has discussed with her at length and given her recommendations and she is ready for discharge. 05/22/18 16:37 (SYED WINTERS) - Vital Signs Vital signs: Temp Pulse Resp BP Pulse Ox 98.4 F 108 H 16 136/90 H 95 05/22/18 11:35 05/22/18 11:35 05/22/18 11:35 05/22/18 11:35 05/22/18 11:35 - Laboratory Laboratory results interpreted by me: 05/22/18 05/22/18 05/22/18 12:22 12:22 12:22 WBC 13.5 H Absolute Neutrophils 9.1 H Absolute Monocytes 1.6 H Potassium 3.5 L Chloride 110 H Glucose 60 L AST 13 L Ur Leukocyte Esterase TRACE H Salicylates < 1.0 L Acetaminophen < 10 L Discharge <ISA DELGADO - Last Filed: 05/22/18 16:12> - Discharge Admitting Provider: Nettie Rhodes <SYED WINTERS - Last Filed: 05/22/18 16:37> - Discharge Clinical Impression: Anxiety Condition: Stable Disposition: HOME, SELF-CARE Additional Instructions: you have been Evaluated by both medical and behavioral health team and have been deemed appropriate for discharge . You are encouraged to follow-up with outpatient therapy. You have been provided a resource list including mobile crisis contact information. Anxiety The physician feels that some of your health problems are being caused by anxiety. Anxiety affects your health in many ways. Anxiety alone can cause palpitations, sweats, chest pains, abdominal pains, shortness of breath, and headaches. It contributes to ulcer disease, high blood pressure, irritable bowel syndrome, and has been shown to cause flare-ups of many other diseases. Anxiety is not a simple disorder to treat. If the anxiety is due to recent life stresses, you may simply need time to "work through" the changes. If the anxiety is due to an underlying unhappiness with yourself or due to psychiatric disturbance, professional help will be needed. Your physician can refer you for further help if needed. Anti-anxiety medication is occasionally given if the stress is acute or if you are having trouble sleeping. Chronic or frequent use of these medications is not a good idea because the body becomes reliant on it, preventing you from dealing with life's normal stresses. AT ANY TIME, IF YOUR SYMPTOMS CHANGE SIGNIFICANTLY OR WORSEN OR YOU DEVELOP NEW SYMPTOMS, RETURN TO THE EMERGENCY DEPARTMENT IMMEDIATELY FOR RE-EVALUATION. Referrals: [facility] [Outside] - Follow up as needed [facility] [Outside] - Follow up in 3-5 days
[2018-05-22 16:41] VITALS: BP 137/89
== END 2018-05-22 16:41 | disposition home or self-care (01) ==
LOC: ER 11:12
DX: F41.9 Anxiety disorder, unspecified (principal); Z88.3 Allergy status to other anti-infective agents; Z88.2 Allergy status to sulfonamides; E78.00 Pure hypercholesterolemia, unspecified; Z90.49 Acquired absence of other specified parts of digestive tract; Z90.710 Acquired absence of both cervix and uterus
CPT/HCPCS: 36415; 80053; 80307; 81001; 85025; 93005; 93010; 99283

== ENCOUNTER 2019-01-29 09:31 | Emergency (ER) | payer SELFPAY ==
--- NOTE | 2019-01-29 09:53 | ER Document Report ---
ED Medical Screen (RME) - General Chief Complaint: Sore Throat Stated Complaint: SORE THROAT Time Seen by Provider: 01/29/19 09:49 TRAVEL OUTSIDE OF THE [place] IN LAST 30 DAYS: No - HPI Notes: 01/29/19 09:51 Patient is a 48-year-old female with history of GERD who presents complaining of exposure to strep by her grandson, sore throat, nasal congestion/discharge, postnasal drip, occasional dry cough. This is been ongoing for 4 days. Patient feels more about irritation and draped in the throat that is making her cough. I have treated and performed a rapid initial assessment of this patient. A com prehensive ED assessment and evaluation of the patient, analysis of test results and completion of medical decision making process will be conducted by additional ED providers. PHYSICAL EXAMINATION: GENERAL: Well-appearing, well-nourished and in no acute distress. Clear rhinorrhea noted Lungs CTAB No significant tonsilar hypertrophy, palatine shift, or uvula deviation - Related Data Allergies/Adverse Reactions: ciprofloxacin HCl [From Cipro] Allergy (Mild, Verified 05/22/18 11:12) Sulfa (Sulfonamide Antibiotics) Allergy (Mild, Verified 05/22/18 11:12) escitalopram oxalate [From Lexapro] Allergy (Verified 05/22/18 11:12) nitrofurantoin [From Macrobid] Allergy (Verified 05/22/18 11:12) Facial swelling nitrofurantoin macrocrystalline [From Macrobid] Allergy (Verified 05/22/18 11:12) Facial swelling contrast dye Allergy (Mild, Uncoded 04/04/18 10:04) Past Medical History - Past Medical History Cardiac Medical History: Reports: Hx Hypercholesterolemia Denies: Hx Coronary Artery Disease, Hx Heart Attack, Hx Hypertension Pulmonary Medical History: Reports: Hx Bronchitis Denies: Hx Asthma, Hx COPD, Hx Pneumonia Neurological Medical History: Reports: Hx Migraine. Denies: Hx Cerebrovascular Accident, Hx Seizures Renal/ Medical History: Reports: Hx Ectopic . Denies: Hx Peritoneal Dialysis GI Medical History: Reports: Hx Gastroesophageal Reflux Disease, Hx Hiatal Hernia, Hx Colonoscopy Musculoskeltal Medical History: Reports Hx Arthritis, Reports Hx Musculoskeletal Trauma Traumatic Medical History: Reports: Hx Fractures - Fractured ankle Past Surgical History: Reports: Hx Cholecystectomy, Hx Gynecologic Surgery - ectopic, D&C x2, Hx Hysterectomy, Hx Orthopedic Surgery - Left hand, left ankle x4, Hx Tubal Ligation - Immunizations Immunizations up to date: Yes Hx Diphtheria, Pertussis, Tetanus Vaccination: Yes Physical Exam - Vital signs Vitals: Temp Pulse Resp BP Pulse Ox 97.9 F 92 18 117/71 97 01/29/19 09:38 01/29/19 09:38 01/29/19 09:38 01/29/19 09:38 01/29/19 09:38 Course - Vital Signs Vital signs: Temp Pulse Resp BP Pulse Ox 97.9 F 92 18 117/71 97 01/29/19 09:38 01/29/19 09:38 01/29/19 09:38 01/29/19 09:38 01/29/19 09:38
--- NOTE | 2019-01-29 11:16 | ER Document Report ---
HPI - HPI Time Seen by Provider: 01/29/19 09:49 Pain Level: 4 Context: Patient is a 48-year-old female who presents emergency department with a chief complaint of a sore throat. She states that her grandson was just diagnosed with strep throat and she has been exposed to him. She has had her symptoms along with a runny nose, cough, and congestion for the past 4 days. Past medical history includes GERD, which he takes Prilosec for. Patient states that she has tried [id number] medications, but only takes them periodically. Denies any fevers. - CONSTITUTIONAL Constitutional: DENIES: Fever, Chills - EENT EENT: REPORTS: Sore Throat, Nasal Drainage-Clear, Congestion. DENIES: Ear Pain, Nasal Drainage-Purulent - NEURO Neurology: DENIES: Headache, Weakness, Vision blurred, Dizzinesss / Vertigo - CARDIOVASCULAR Cardiovascular: DENIES: Chest pain - RESPIRATORY Respiratory: REPORTS: Coughing. DENIES: Trouble Breathing - GASTROINTESTINAL Gastrointestinal: DENIES: Abdominal Pain, Nausea, Patient vomiting - REPRODUCTIVE Reproductive: DENIES: : - MUSCULOSKELETAL Musculoskeletal: DENIES: Extremity pain - DERM Skin Color: Normal Skin Problems: None Past Medical History - Social History Smoking Status: Current Every Day Smoker Chew tobacco use (# tins/day): No Frequency of alcohol use: None Drug Abuse: None Family History: CAD - Father of [place], Malignancy - Brother with colon cancer Patient has suicidal ideation: No Patient has homicidal ideation: No - Past Medical History Cardiac Medical History: Reports: Hx Hypercholesterolemia Denies: Hx Coronary Artery Disease, Hx Heart Attack, Hx Hypertension Pulmonary Medical History: Reports: Hx Bronchitis Denies: Hx Asthma, Hx COPD, Hx Pneumonia Neurological Medical History: Reports: Hx Migraine. Denies: Hx Cerebrovascular Accident, Hx Seizures Renal/ Medical History: Reports: Hx Ectopic . Denies: Hx Peritoneal Dialysis GI Medical History: Reports: Hx Gastroesophageal Reflux Disease, Hx Hiatal Hernia, Hx Colonoscopy Musculoskeletal Medical History: Reports Hx Arthritis, Reports Hx Musculoskeletal Trauma Traumatic Medical History: Reports: Hx Fractures - Fractured ankle Past Surgical History: Reports: Hx Cholecystectomy, Hx Gynecologic Surgery - ectopic, D&C x2, Hx Hysterectomy, Hx Orthopedic Surgery - Left hand, left ankle x4, Hx Tubal Ligation - Immunizations Immunizations up to date: Yes Hx Diphtheria, Pertussis, Tetanus Vaccination: Yes Vertical Provider Document - CONSTITUTIONAL Agree With Documented VS: Yes Exam Limitations: No Limitations General Appearance: No Apparent Distress - INFECTION CONTROL TRAVEL OUTSIDE OF THE [place] IN LAST 30 DAYS: No - HEENT HEENT: Atraumatic, Normocephalic, PERRLA, Pharyngeal Tenderness, Pharyngeal Erythema. negative: Conjuctival Injection, Pharyngeal Exudate, Tympanic Membrane Red, Tympanic Membrane Bulging Notes: Edema and erythema noted to the nasal mucosa. - NECK Neck: Normal Inspection - RESPIRATORY Respiratory: Breath Sounds Normal, No Respiratory Distress - CARDIOVASCULAR Cardiovascular: Regular Rate, Regular Rhythm Pulses: Normal: Radial - MUSCULOSKELETAL/EXTREMETIES Musculoskeletal/Extremeties: FROM - NEURO Level of Consciousness: Awake, Alert, Appropriate - DERM Integumentary: Warm, Dry Course - Re-evaluation Re-evalutation: 01/29/19 11:14 Patient's rapid strep was negative. Throat culture was sent. I have instructed the patient to continue Claritin at home. I will write her prescription for Flonase. I have a very low suspicion for peritonsillar abscess, as the patient's uvula is midline. Follow-up precautions were given. Verbal discharge instructions were given to the patient. They verbalized understanding. They are stable for discharge. - Vital Signs Vital signs: Temp Pulse Resp BP Pulse Ox 97.9 F 92 18 117/71 97 01/29/19 09:38 01/29/19 09:38 01/29/19 09:38 01/29/19 09:38 01/29/19 09:38 Discharge - Discharge Clinical Impression: Sore throat, Rhinorrhea Condition: Stable Disposition: HOME, SELF-CARE Instructions: Sore Throat ([facility]) Additional Instructions: You were seen today in the emergency department for a sore throat. The rapid strep test was negative. If the culture comes back positive, you will be called. Please continue your Claritin every day at home. You are being sent home with a prescription for Flonase. Please use the Flonase every day. Please follow-up with your primary care provider in regards to this visit. Prescriptions: Fluticasone Propionate [Flonase Nasal [place] 50 Mcg/[place] 16 gm] 2 sprays NASL DAILY #1 inhaler Forms: Return to Work
[2019-01-29 11:36] VITALS: BP 125/86
== END 2019-01-29 11:36 | disposition home or self-care (01) ==
LOC: ER 09:31
DX: J02.9 Acute pharyngitis, unspecified (principal); J34.89 Other specified disorders of nose and nasal sinuses; F17.200 Nicotine dependence, unspecified, uncomplicated; E78.00 Pure hypercholesterolemia, unspecified; Z90.49 Acquired absence of other specified parts of digestive tract; Z90.710 Acquired absence of both cervix and uterus
CPT/HCPCS: 87070; 87880; 99283